=== PATIENT | male | born 1945 | race Caucasian/White ===

== ENCOUNTER 2018-02-19 11:22 | Observation (INO) | payer MEDICARE, BC ==
[2018-02-19] MEDS ORDERED: Ondansetron HCl/PF 4 MG/2 ML Vial ONE ×2 (11:37→12:55)
[2018-02-19] MEDS ORDERED: Succinylcholine Chloride 20 MG/ML 10 ml SYRINGE FS ONE (11:37)
[2018-02-19] MEDS ORDERED: ePHEDrine/0.9% NaCl/PF SYRINGE 50 mg/10 ml ONE (11:37)
[2018-02-19] MEDS ORDERED: PROPOFOL 200 MG/20 ML VIAL ONE (11:37)
[2018-02-19] MEDS ORDERED: Glycopyrrolate 0.2 MG/ML 5 ML SYRINGE ONE (11:37)
[2018-02-19] MEDS ORDERED: Lidocaine 1% PF 5 ML VIAL ONE (11:37)
[2018-02-19 12:14] LABS: #Lymphocytes 1.2 thou/uL (1.20-3.40); #Monocytes 0.7 thou/uL (0.11-0.59); #Neutrophils 11.6 thou/uL (1.40-6.50); %Basophils 0.3 % (0.0-1.0); %Eosinophils 0.2 % (0.0-10.0); %Lymphocytes 8.8 % (21.0-51.0); %Monocytes 5.4 % (0.0-10.0); %Neutrophils 85.3 % (42.0-75.0); Hemoglobin 13.1 g/dL (14.0-18.0); Mean Corpuscular HGB CONC 33.7 g/dL (32.0-36.0); Mean Corpuscular Hemoglobin 30.8 pg (27.0-31.0); Mean Corpuscular Volume 91.4 fL (78.0-98.0); Platelet Count 237 thou/uL (130-400); RBC Distribution Width 11.5 % (11.5-14.5); Red Blood Cell (RBC) Count 4.26 mill/uL (4.70-6.10); White Blood Cell (WBC) Count 13.6 thou/uL (4.8-10.8)
[2018-02-19 12:49] LABS: ALT (SGPT) 13 U/L (8-55); AST (SGOT) 16 U/L (5-34); Albumin 4.3 g/dL (3.4-4.8); Alkaline Phosphatase 59 U/L (40-150); Anion Gap 14 mmol/L (10-20); BUN (Urea Nitrogen) 11 mg/dL (8.4-25.7); Bilirubin, Total 1.6 mg/dL (0.2-1.2); Calc. Creatinine Clearance 0 mL/min (70-130); Calcium 10.4 mg/dL (7.8-10.44); Carbon Dioxide 27 mmol/L (23-31); Chloride 92 mmol/L (98-107); Estimated GFR-MDRD 61; Globulin 3.3 g/dL (2.4-3.5); Glucose 151 mg/dL (83-110); Lipase 17 U/L (8-78); Protein, Total 7.6 g/dL (5.8-8.1); Sodium 129 mmol/L (136-145)
[2018-02-19] MEDS ORDERED: Morphine 4 MG/ML VIAL ONE (12:55)
[2018-02-19 14:19] LABS: Bilirubin Negative (Negative); Blood, Urine Negative (Negative); Clarity CLEAR (Clear); Glucose, Urine (Dipstick) Negative (Negative); Leukocyte Large (Negative); Nitrite Negative (Negative); Protein, Urine (Dipstick) Negative (Neg-Trace); Specific Gravity, Urine 1.006 (1.002-1.036); Urobilinogen 0.2 mg/dL (0.2-1.0)
[2018-02-19 14:21] LABS: Bacteria/HPF None Seen HPF (None Seen); Hyaline Casts/LPF 0-3 HYALINE CAST LPF (0-3 Hyaline); RBC/HPF 0-3 HPF (0-3); Squamous Epithelial 0-3 HPF (0-3)
[2018-02-19] MEDS ORDERED: Piperacillin/Tazobactam 3.375 GM VIAL ONE (14:41)
[2018-02-19] MEDS ORDERED: Iopamidol 370 76% 50 ML VIAL FS ONE (14:45)
[2018-02-19] MEDS ORDERED: ISOVUE-370 76%-LOCM 1 ML ONE (14:45)
--- NOTE | 2018-02-19 14:48 | CT ---
CT ABDOMEN AND PELVIS WITH ORAL AND IV CONTRAST: Date: 02/19/18 HISTORY: Right lower quadrant abdominal pain. FINDINGS: There are mild dependent changes in the lung bases. No free air or free fluid is seen in the abdomen or pelvis. No lymphadenopathy is noted. There are vascular calcifications without evidence of aneurys mal dilatation of the abdominal aorta. The prostate is enlarged. There is a 1.0 cm low density lesion in the left lobe of the liver, likely cyst. No calcified gallsto roe are seen. The spleen, pancreas, and adrenal glands are normal. Low density lesions in the kidneys are likely cysts. The small bowel loops are not abnormally dilated. A dilated, fluid-filled appendix is seen without pe riappendiceal inflammatory changes. There is contrast in the cecum, but not in the appendix. IMPRESSION: Findings are suggestive of appendicitis. Discussed over the phone with ER physician, Dr. Augusto Butterfield, at 1422 hours. CODE CR. POS: ARMIN
[2018-02-19] MEDS ORDERED: Bupivacaine/Epinephrine 0.25% 30 ML VIAL ONE (15:14)
--- NOTE | 2018-02-19 15:39 | HP ---
DATE OF ADMISSION: 02/19/2018 HISTORY OF PRESENT ILLNESS: Mr. Barbosa is a 72-year-old man who presented to [facility] with insidious onset periumbilical abdominal pain which started approximately 1300 hours yester day. The pain was described as a dull ache which intensified to sharp pain rated at 9/10, associated with two bouts of nausea, but no emesis. This patient reports some anorexia. He admits to some chills, but no fever. The patient presented to emergency department today because the pain has now settled in the right low er quadrant where it has persisted. PAST MEDICAL HISTORY: Pertinent for essential hypertension, hyperlipidemia, and type 2 diabetes vinayak itus. PAST SURGICAL HISTORY: Patient denies any significant past surgeries except for colonoscopies x2, la st of which was within the last 5 years. SOCIAL HISTORY: The patient is and lives at home with his . He is retired. He admits t o over 30 pack-year cigarette smoking, but has not smoked over the last 3-5 years. He admits to heather garcia 12 beers daily. Denies any other illicit drug abuse. FAMILY HISTORY: Noncontributory for this patient's age. PREHOSPITALIZATION MEDICATIONS: Includes vitamin D3 1000 units p.o. daily, meclizine 25 mg p.o. b.i. d., Centrum 1 p.o. daily, valsartan/hydrochlorothiazide 160/25 mg p.o. daily, metformin 2000 mg p.o. at bedtime with meals, glimepiride 4 mg p.o. daily, amlodipine 10 mg p.o. daily, atorvastatin 20 mg p .o. daily, aspirin 81 mg p.o. daily, fish oil 1000 mg p.o. daily. ALLERGIES: Patient denies any known drug allergies. REVIEW OF SYSTEMS: A 10-point review of systems essentially unremarkable except for as stated in pas t medical history and chief complaint. PHYSICAL EXAMINATION: GENERAL: This reveals a 72-year-old normally developed man who is otherwise coherent and interactive and appears stated age. The patient is alert and oriented x3, appears to be in no acute distress at the time of my evaluation. VITAL SIGNS: Includes blood pressure 139/78, pulse 81, respiratory rate is 17, temperature is 98.3 d egrees Fahrenheit, oxygen saturation 93% on room air. HEENT: Reveals normocephalic and atraumatic. Pupils are equal, round, reactive to light and accommo dation. Extraocular muscles are intact bilaterally. The patient has no sclerae icterus present. Or al mucosa pink and moist. No lesions are noted. NECK: Supple. No palpable lymphadenopathy or thyromegaly present. CARDIOVASCULAR: Heart reveals regular rate and rhythm, no murmurs or gallops auscultated. LUNGS: Clear to auscultation bilaterally. Breathing regular and unlabored. ABDOMEN: Soft with right lower quadrant tenderness at McBurney's. He has a positive Rovsing sign. Liver and spleen are nonpalpable below costal margins. EXTREMITIES: Reveals 2+ radial and pedal pulses bilaterally. No ankle edema is present. NEUROLOGIC: Reveals no focal deficits present. IMAGING: I have personally reviewed the CT scan of the abdomen and pelvis, which reveals dilated veronica endix with no significant periappendiceal fat stranding. PERTINENT LABORATORY DATA: Today includes a CBC with 13,600 white blood cells, hemoglobin and hemato crit 13.1 and 39.0 respectively. Platelet count is 237,000. Metabolic profile: Sodium 129, potassi um is 4.0, chloride is 92, bicarbonate is 27, BUN 11, creatinine is 1.17, glucose 151, total bilirubi n is 1.6. Serum lipase is normal at 17. IMPRESSION: Acute appendicitis. PLAN: Laparoscopic appendectomy. Above findings and plans were discussed with the patient. I have advised the patient of the risks and benefits of the proposed surgery to include, but not limited to bleeding, infection, injury to bowel and surrounding structures. The patient and his at bedside , both indicated understanding of the information provided. I answered their questions. The patient has granted consent for this admission and surgical intervention.
[2018-02-19] MEDS ORDERED: Fentanyl 100 MCG/2 ML VIAL ONE ×2 (15:50→17:19)
[2018-02-19] MEDS ORDERED: Ondansetron HCl/PF 4 MG/2 ML Vial IVP PRN ×2 (17:41)
[2018-02-19] MEDS ORDERED: Promethazine HCl 25 MG/ML VIAL IM PRN ×2 (17:41)
[2018-02-19] MEDS ORDERED: Promethazine HCl 25 MG/ML VIAL SLOW IVP PRN (17:41)
[2018-02-19] MEDS ORDERED: Dextrose 5% in Water 1,000 ML IV PRN (17:41)
[2018-02-19] MEDS ORDERED: Dextrose 50% Abboject 50 ML SYRINGE SLOW IVP PRN (17:41)
[2018-02-19] MEDS ORDERED: hydrALAZINE 20 MG/ML VIAL SLOW IVP PRN (17:41)
[2018-02-19] MEDS ORDERED: Sodium Chloride 0.9% 1,000 ML IV SCH (17:45)
[2018-02-19] MEDS ORDERED: Labetalol HCl 100 MG/20 ML VIAL ONE (17:48)
[2018-02-19 18:51] VITALS: BMI 26.0
[2018-02-19] MEDS: Famotidine 20 MG TAB PO SCH (20:57)
[2018-02-19] MEDS: Piperacillin/Tazobactam 3.375 GM in Sodium Chloride 0.9% 100 ML IVPB SCH (21:09)
--- NOTE | 2018-02-19 21:09 | OP ---
DATE OF OPERATION: 02/19/2018 PREOPERATIVE DIAGNOSES: Acute appendicitis. POSTOPERATIVE DIAGNOSIS: Acute appendicitis. PROCEDURES PERFORMED: Laparoscopic appendectomy. SURGEON: Vince Mina D.O. ANESTHESIA: General endotracheal. ESTIMATED BLOOD LOSS: 20 mL FLUIDS GIVEN: 1500 mL crystalloids. SPONGE AND INSTRUMENT COUNT: Certified as correct x2. COMPLICATIONS: None apparent at the time of operation. INDICATIONS FOR PROCEDURE: A 72-year-old man presented with abdominal pain. Clinical and radiographic examination was consistent with acute appendicitis for which patient was brought to the operating room for appendectomy. Findings are consistent with acute suppurative retrocecal appendix, no evidence of perforation. There was a small amount of seropurulent fluid in the pericecal gutter. This was evacuated with suction. DESCRIPTION OF PROCEDURE: Informed consent obtained from the patient, who was brought to the operati ng room and placed in supine position. Following general anesthesia, abdomen is sterilely prepped an d draped in usual fashion. The skin below the umbilicus was infiltrated with 0.25% Marcaine with epi nephrine. A small curvilinear infraumbilical incision is made using an 11 scalpel. Umbilical stalk grasped with Kimberly's and elevated. Veress needle inserted through the incision and placed in the pe ritoneal cavity through which the abdomen was insufflated with 3 liters of CO2 gas. Intraabdominal p ressure was noted at 2 mmHg. Following abdominal insufflation, Veress needle was removed and a 5 mm trocar introduced using the Visiport under laparoscopy. Laparoscopy confirmed with proper placement of the port, no injuries to underlying structures. Additional laparoscopy reveals the right lower qu adrant completely encased by omental adhesions. Under direct laparoscopy, a 5 mm suprapubic and a 12 mm left lower quadrant ports were placed after the overlying skin infiltrated with 0.25% Marcaine wi th epinephrine and appropriate incision was made. The patient was placed in a Trendelenburg position , rotated to his left. I introduced a Prestige grasper through the left lower quadrant ports using t his to bluntly take down omental adhesions. Terminal ileum was then traced up approximately 2 feet f rom the ileocecal junction, no Meckel's diverticulum noted. The cecum was adhered to the right later al gutter. Once the fibrinous attachments were taken down using EndoShears, a retrocecal appendix wa s noted, which was quite supportive. I introduced an Endo Essence forceps through the suprapubic por t site grasping the appendix which was elevated. I used a [place] dissector to create a rent throug h the mesoappendix. Through this Endo-GIANNI with a blue load was introduced dividing the appendix at a ppendicocecal junction. Using a white load of the Endo-GIANNI, the mesoappendix was divided at the base . A suppurative appendix is delivered of the abdominal cavity using an EndoCatch. Operative site ir rigated with saline. Finding no other pathology, laparoscopy was terminated. Fascia of the left low er quadrant port site was closed using 0 Vicryl suture and Endo closure device under laparoscopy. Th e abdomen was desufflated. All ports and instruments removed and accounted for. Skin incisions clos ed using 4-0 Monocryl suture in subcuticular fashion. Dermabond applied over the incision to closure . The patient tolerated the operation without any apparent complications and was returned to the rec overy room in satisfactory condition.
[2018-02-19] MEDS: Ketorolac Tromethamine 30 MG/ML VIAL IVP SCH (21:10)
[2018-02-19] MEDS: Famotidine/PF 20 mg/2ml Vial SLOW IVP SCH (21:11)
[2018-02-19] MEDS: Oxazepam 10 MG CAP PO SCH (21:11)
[2018-02-20] MEDS: Ketorolac Tromethamine 30 MG/ML VIAL IVP SCH ×5 (02:45→20:39)
[2018-02-20] MEDS: Piperacillin/Tazobactam 3.375 GM in Sodium Chloride 0.9% 100 ML IVPB SCH ×4 (02:48→20:41)
[2018-02-20] MEDS ORDERED: Non-Formulary Item 1 EACH (Valsartan/Hydrochlorothiazide [Diovan Hct] 1 TABLET) PO SCH (09:00)
[2018-02-20] MEDS: Neostigmine 0.5 MG in Syringe 0 ML SC SCH ×3 (09:23→20:40)
[2018-02-20] MEDS: Famotidine/PF 20 mg/2ml Vial SLOW IVP SCH ×2 (09:23→20:39)
[2018-02-20] MEDS: Oxazepam 10 MG CAP PO SCH ×3 (09:24→20:39)
[2018-02-20] MEDS: Atorvastatin Calcium 20 MG TAB PO SCH (09:24)
[2018-02-20] MEDS: Valsartan 80 MG TAB PO SCH (09:25)
[2018-02-20] MEDS: Folic Acid 1 MG TAB PO SCH (09:25)
[2018-02-20] MEDS: Amlodipine 10 MG TAB PO SCH (09:25)
[2018-02-20] MEDS: Famotidine 20 MG TAB PO SCH ×2 (10:36→20:38)
[2018-02-20] MEDS: HumaLOG 300 UNITS/3 ML VIAL SC PRN ×2 (13:37→16:15)
--- NOTE | 2018-02-20 15:58 | PRG ---
DATE OF SERVICE: 02/20/2018 SUBJECTIVE: Mr. Barbosa is a 72-year-old man who is postop day #1 status post laparoscopic appendectomy and drainage of periappendiceal abscess. The patient reports adequate pain control today. He ambul ates with minimum difficulty. He is tolerating clear liquid diet. He denies passing any flatus. OBJECTIVE: VITAL SIGNS: This morning includes blood pressure 152/80, pulse 72, respiratory rate is 20, temperat ure is 97.6 degrees Fahrenheit, oxygen saturation is 91% on 1 liter by nasal cannula oxygen. HEENT: Reveals normocephalic and atraumatic. Pupils are equal, round, and reactive to light and acc ommodation. Extraocular muscles are intact bilaterally. He has no sclerae icterus present. HEART: Reveals regular rate and rhythm, no murmurs or gallops auscultated. CHEST: Clear to auscultation bilaterally. Breathing is regular and unlabored. ABDOMEN: Soft and markedly distended. He has hyperactive bowel sounds. Incisions otherwise remain intact, clean, and dry. He has no peritoneal signs on examination. NEUROLOGIC: Reveals no focal deficits present. IMPRESSION: 1. Postoperative day #1 status post laparoscopic appendectomy and drainage of periappendiceal absces s. 2. Acute postoperative ileus. PLAN: 1. Continue to increase activity as tolerated. 2. We will maintain diet with clear liquids and advance as tolerated. 3. The patient will be discharged home once ileus resolves. The above findings and plan discussed w ith the patient and his at bedside. They indicate understanding of information given. I have a nswered their questions.
[2018-02-21] MEDS: Ketorolac Tromethamine 30 MG/ML VIAL IVP SCH ×2 (03:53→09:23)
[2018-02-21] MEDS: Neostigmine 0.5 MG in Syringe 0 ML SC SCH ×2 (03:54→09:25)
[2018-02-21] MEDS: Piperacillin/Tazobactam 3.375 GM in Sodium Chloride 0.9% 100 ML IVPB SCH ×2 (03:54→09:31)
[2018-02-21 05:18] VITALS: BP 169/81
[2018-02-21] MEDS ORDERED: Prevnar 13-Val Conj/PF 0.5 ML SYRINGE IM ONE (09:00)
[2018-02-21] MEDS: Folic Acid 1 MG TAB PO SCH (09:04)
[2018-02-21] MEDS: Valsartan 80 MG TAB PO SCH (09:04)
[2018-02-21] MEDS: Amlodipine 10 MG TAB PO SCH (09:04)
[2018-02-21] MEDS: Atorvastatin Calcium 20 MG TAB PO SCH (09:04)
[2018-02-21] MEDS: Famotidine 20 MG TAB PO SCH (09:05)
[2018-02-21] MEDS: Famotidine/PF 20 mg/2ml Vial SLOW IVP SCH (09:06)
[2018-02-21] MEDS: Oxazepam 10 MG CAP PO SCH (09:22)
[2018-02-21 11:26] VITALS: TEMP 98.3
--- NOTE | 2018-02-21 20:33 | DIS ---
DATE OF ADMISSION: 02/19/2018 DATE OF DISCHARGE: 02/21/2018 ADMITTING AND DISCHARGING PHYSICIAN: Vince Mina DO ADMITTING AND DISCHARGE DIAGNOSIS: Acute appendicitis with periappendiceal abscess. OPERATIONS PERFORMED: Laparoscopic appendectomy and drainage of periappendiceal abscess by Dr. Mina on 02/19/2018. Please see a separate dictation for the operative report. HISTORY AND HOSPITAL COURSE: A 72-year-old man admitted on 02/19/2018 following an uneventful laparo scopic appendectomy and drainage of periappendiceal abscess. The patient developed a postoperative a dynamic ileus, which resolved 48 hours later. Today, he is ambulating with minimum difficulty. He e ndorses flatus and bowel movements. He tolerated general diet. The pain is adequately controlled on oral analgesics. The patient has remained hemodynamically stable and afebrile. PHYSICAL EXAMINATION: VITAL SIGNS: Blood pressure this morning 143/74, pulse is 75, respiratory rate is 16, temperature 98 .2 degrees Fahrenheit, oxygen saturation is 92% on 2 liters by nasal cannula oxygen. HEART: Reveals regular rate and rhythm. No murmurs or gallops auscultated. LUNGS: Clear to auscultation bilaterally. Breathing regular and unlabored. ABDOMEN: Soft and obese. He has minimum abdominal tenderness to palpation. Incisions remain intact , clean and dry. The patient has maximized hospital benefit and will be discharged home today with the following instr uctions: 1. He follows up with me in the [facility] in 2 weeks. 2. He is to avoid weightlifting in excess of 20 pounds until he has been released by me. 3. He may shower and avoid soaking himself in a bathtub or swimming until he has been released by me . 4. He is to call me with any questions or problems including fever in excess of 101 degrees Fahrenhe it, exacerbation of abdominal pain, intolerance to oral intake or any abnormal drainage from the inci sional wounds. The patient has also been advised to resume all prehospitalization medication as prescribed by his [facility] physician. Additionally, he was given a prescription for tramadol 50 mg, number 40 with 1 refill, to be taken 1-2 p.o. q.6 hours p.r.n. pain. He may alternate this with Tylenol 1000 mg p.o. q.6 hours. He was given a prescription for Augmentin 875 mg number 10 to be taken 1 p.o. b.i.d. unt il all taken. Above instructions were given to the patient, who indicates understanding of the information given. I have answered his questions.
== END 2018-02-21 12:22 | disposition home or self-care (01) ==
LOC: ERS 11:22 → SDC/OP 15:17 → SURG A 18:40
PROVIDERS: ADMIT Surgery; ATTEND Surgery
PROC: 0DTJ4ZZ Resection of Appendix, Percutaneous Endoscopic Approach (ICD-10-PCS; principal; 2018-02-19)
DX: K35.3 Acute appendicitis with localized peritonitis (principal); I10 Essential (primary) hypertension; E78.5 Hyperlipidemia, unspecified; E11.9 Type 2 diabetes mellitus without complications; K56.7 Ileus, unspecified; Z87.891 Personal history of nicotine dependence; Z79.82 Long term (current) use of aspirin; Z79.84 Long term (current) use of oral hypoglycemic drugs; Z79.899 Other long term (current) drug therapy; Z98.890 Other specified postprocedural states
CPT/HCPCS: 44970; 74177; 80053; 82962 ×3; 83690; 85025; 88304; 93005; 96361 ×3; 96365; 96366 ×3; 96372 ×2; 96374; 96375 ×2; 96376 ×2; 99285; G0378; G0463; 36415; 36416; 81003; 81015; 99213; J1885; J2001; J2270; J2405; J2543; J2704; J2710; J3010; J7050; S0028

== ENCOUNTER 2019-12-22 06:56 | Outpatient (CLI) | payer MEDICARE, BC ==
--- NOTE | 2019-12-22 07:44 | ULT ---
Renal sonogram HISTORY: Renal insufficiency. FINDINGS: Right kidney measures up to 11.1 cm. No hydronephrosis. A 2.1 cm cyst projects from the inf erior pole. Left kidney is 11.2 cm. No hydronephrosis. A 1.3 cm cyst is present at the inferior pole. Urinary bladder has a normal appearance. IMPRESSION : No evidence of urinary tract obstruction. Small bilateral renal cysts.
== END 2019-12-22 06:57 | disposition home or self-care (01) ==
LOC: BICULT 06:56
PROVIDERS: ATTEND Internal Medicine Nephrology
DX: N18.3 Chronic kidney disease, stage 3 (moderate) (principal); N28.1 Cyst of kidney, acquired
CPT/HCPCS: 76770

== ENCOUNTER 2020-06-25 08:37 | Outpatient (CLI) | payer MEDICARE, BC ==
--- NOTE | 2020-06-25 09:37 | ULT ---
BILATERAL CAROTID DUPLEX ULTRASOUND: HISTORY: Dizziness TECHNIQUE: Grayscale, color-flow and spectral Doppler ultrasound imaging of the extracranial carotid artery syst ems was performed bilaterally. FINDINGS: There is mild plaque formation in the carotid bifurcations. The peak systolic velocity in the right ICA measures 84 cm/s with an end-diastolic velocity of 7 cm/s and a systolic ratio of 0.9. The peak systolic velocity in the left ICA measures 91 cm/s with an end-diastolic velocity of 12 cm/s and a systolic ratio of 0.84. Flow in both vertebral arteries remains antegrade. IMPRESSION: No evidence of hemodynamically significant stenosis in either ICA.
== END 2020-06-25 08:38 | disposition home or self-care (01) ==
LOC: ULT 08:37
PROVIDERS: ATTEND Nurse Practitioner Family
DX: I65.23 Occlusion and stenosis of bilateral carotid arteries (principal)
CPT/HCPCS: 93880

== ENCOUNTER 2020-07-26 13:16 | Inpatient (IN) | payer MEDICARE, OTHER ==
[~2020-07-26 13:16] MED LIST: Heparin 10,000 UNITS/ 10 ML VIAL ONE
[2020-07-26 14:08] LABS: #Lymphocytes 0.7 thou/uL (1.20-3.40); %Basophils 0.1 % (0.0-1.0); %Eosinophils 0.1 % (0.0-10.0); %Lymphocytes 5.4 % (21.0-51.0); %Monocytes 7.2 % (0.0-10.0); %Neutrophils 87.3 % (42.0-75.0); Hemoglobin 9.6 g/dL (14.0-18.0); Mean Corpuscular HGB CONC 34.6 g/dL (32.0-36.0); Mean Corpuscular Hemoglobin 32.3 pg (27.0-31.0); Mean Corpuscular Volume 93.4 fL (78.0-98.0); Mean Platelet Volume 6.7 fL (7.4-10.4); Platelet Count 335 thou/uL (130-400); RBC Distribution Width 10.9 % (11.5-14.5); Red Blood Cell (RBC) Count 2.97 mill/uL (4.70-6.10); White Blood Cell (WBC) Count 13.8 thou/uL (4.8-10.8)
[2020-07-26] MEDS ORDERED: Calcium Gluc 4.6 MEQ/10 ML (100 MG/ML) ONE ×2 (14:11→18:16)
[2020-07-26] MEDS ORDERED: DOPamine 400 MG/D5W 250 ML 250 ML ONE (14:12)
--- NOTE | 2020-07-26 14:30 | RAD ---
Exam: Chest one view HISTORY:Dyspnea Comparison: 01/02/2013 FINDINGS: Cardiac silhouette:Cardiomegaly. Aorta: Atherosclerosis Pulmonary vessels: Normal Costophrenic angles: Clear LUNGS: Bibasilar interstitial opacities, along with a right perihilar interstitial infiltrate. Pneumothorax: None Osseous abnormalities: None IMPRESSION: 1. Atherosclerosis 2. Bibasilar infiltrates along with a right upper lobe infiltrate. Multi lobar pneumonia is suspected . Continued surveillance is recommended.
[2020-07-26 14:31] LABS: ALT (SGPT) 16 U/L (8-55); AST (SGOT) 21 U/L (5-34); Alkaline Phosphatase 44 U/L (40-110); Anion Gap 21 mmol/L (10-20); BUN (Urea Nitrogen) 74 mg/dL (8.4-25.7); Bilirubin, Total 0.4 mg/dL (0.2-1.2); Calc. Creatinine Clearance 0 mL/min (70-130); Calcium 8.5 mg/dL (7.8-10.44); Carbon Dioxide 18 mmol/L (23-31); Chloride 81 mmol/L (98-107); Glucose 167 mg/dL (83-110); Magnesium 2.1 mg/dL (1.6-2.6); Potassium 5.9 mmol/L (3.5-5.1)
[2020-07-26 14:34] LABS: Sodium 114 mmol/L (136-145)
[2020-07-26 15:07] LABS: SARS-CoV-2 NAA Rapid Test Not Detected (NotDetected)
[2020-07-26] MEDS ORDERED: Azithromycin 500 MG VIAL ONE (15:14)
[2020-07-26] MEDS ORDERED: cefTRIAXone\\ROCEPHIN 2 GM VIAL ONE (15:14)
[2020-07-26 15:46] LABS: Base Excess-Venous -7.1 mmol/L (-2.0 to 3.0); Bicarbonate (HCO3v) 19.3 mmol/L (22.0-28.0); CO2 Tension (PvCO2) 42.1 mmHg (40.0-50.0); Calcium, Ionized 1.16 mmol/L (1.15-1.33); Chloride 81 mmol/L (98-107); Hemoglobin - Calc 8.4 g/dL (14.0-18.0); Potassium 6.2 mmol/L (3.5-5.1); Sodium 109 mmol/L (138-145); T. Carbon Dioxide 20.6 mmol/L (22.0-28.0); vO2 Saturation-calc 97.9 % (60.0-85.0)
[2020-07-26] MEDS ORDERED: Fentanyl 100 MCG/2 ML VIAL ONE ×2 (15:56→17:32)
--- NOTE | 2020-07-26 16:03 | RAD ---
Chest one view HISTORY: Central line placement. COMPARISON: 07/26/2020 earlier exam on the same date. FINDINGS: Cardiac silhouette is magnified by projection. Pulmonary vasculature upper limits of normal . Mediastinum is midline with aortic calcification. Infiltrate at the right base is more dense than on the prior study. Infiltrate at the superior segmen t right lower lobe unchanged. No evidence of pneumothorax. Defibrillator patches overlie the chest. Thin radiopaque tubing overlies the right supraclavicular level. Knot at the expected location of a c entral venous catheter. IMPRESSION : Central venous catheter not visualized on this exam. No evidence of pneumothorax. Slight worsening of right basilar infiltrate.
[2020-07-26] MEDS ORDERED: methylPREDNISolone Sod Succ/PF 125 MG/2 ML VIAL ONE (16:37)
[2020-07-26] MEDS ORDERED: Sodium Bicarb 50 MEQ/50 ML VIAL ONE (16:37)
[2020-07-26] MEDS ORDERED: Dextrose 50% Abboject 50 ML SYRINGE SLOW IVP PRN (16:43)
[2020-07-26] MEDS ORDERED: Dextrose 5% in Water 1,000 ML IV PRN (16:43)
--- NOTE | 2020-07-26 16:53 | CON ---
DATE OF CONSULTATION: 07/26/2020 REASON FOR CONSULTATION: Bradycardia. HISTORY OF PRESENT ILLNESS: Mr. Barbosa is a very pleasant 75-year-old white gentleman, who comes to the hospital for just not feeling well. He states for the last 2 months he has been slowly feeling worse with pain all over his body, tingling of the upper extremities. Today, he was so bad that he decided to come in for evaluation. Initially, he had an EKG that showed atrial fibrillation with a heart rate in the mid to low 40s, so Cardiology was consulted emergently. On my evaluation, Mr. Barbosa denies any syncope or presyncope. He has only been feeling tired and weak for the last few months, getting worse every day. Workup was still pending on my evaluation, however, now at the time of this dictation, he has already had a chest x-ray that suggest multilobar pneumonia as well as several electrolyte derangements including hyponatremia and hyperkalemia. He also has acute renal injury. Mr. Barboas denies any chest pain, tightness, or pressure. His breathing is minimally changed from his baseline, but he does have a lot of cough. PAST MEDICAL HISTORY: 1. Diabetes. 2. Hyperlipidemia. 3. Hypertension. SURGICAL HISTORY: Sinus surgery. SOCIAL HISTORY: Former smoker, quit over 10 years ago. Drinks every day about 6 drinks, 10 beers per day. No drug use. ALLERGIES: NO KNOWN DRUG ALLERGIES. OUTPATIENT MEDICATIONS: 1. Amlodipine 5 mg a day. 2. Lisinopril 20 mg a day. 3. Pantoprazole 40 mg a day. 4. Atorvastatin 10 mg q.h.s. 5. Metformin 1000 mg b.i.d. 6. Acetaminophen p.r.n. 7. Prednisone 10 mg a day. PHYSICAL EXAMINATION: VITAL SIGNS: Temperature on arrival he was 94.8 rectally, blood pressure was 115/44, pulse of 47 anywhere from 42 to 61. He was saturating 98% on 4 L nasal cannula. GENERAL: Awake, alert, oriented x3. No distress. HEENT: Normocephalic, atraumatic. NECK: Supple. LUNGS: Clear to auscultation anteriorly. ABDOMEN: Soft. Positive bowel sounds. CARDIOVASCULAR: S1, S2. Irregularly regular and bradycardic in the 40s. EXTREMITIES: 2+ edema. SKIN: Warm and dry. LABORATORY DATA: Laboratory work has been reviewed. CBC with a white count of 13, hemoglobin of 9.8, hematocrit of 27, platelet count of 335. ABG was reviewed, pH was 7.27. This is of VBG. CO2 was 42. Chemistry with a sodium of 114, potassium was 5.9, anion gap was 21, BUN 74, creatinine 4.43, GFR of 13, glucose of 167. Troponin was negative. BNP was 506. Magnesium was 2.1. LFTs were normal. Albumin of 4. COVID-19 PCR was not detected and influenza A and B are both negative. DIAGNOSTIC STUDIES: EKG was reviewed. Chest x-rays were reviewed. ASSESSMENT AND PLAN: 1. Bradycardia. 2. Hyponatremia. 3. Hyperkalemia. 4. Abnormal liver function tests. 5. Acute kidney injury, new onset. 6. Multilobar pneumonia, possibly. 7. Hypothermia, improved on a Stevie Hugger. 8. Atrial fibrillation, unknown duration. PLAN: 1. Most likely his bradycardia is related to his metabolic derangement including hyponatremia and hyperkalemia, which are probably related to either his pneumonia and his kidney injury. These will need to be corrected before deciding if he will be a candidate for any type of pacing. At this time, he is stable where he does not require a temporary pacer and I would just do dopamine as needed if his heart rate would drop or his blood pressure drops a more. If we suspect septic shock, a better medication would be Levophed at that point for blood pressure more than dopamine. 2. Echocardiogram will be done. 3. Agree with ICU admission. 4. Antibiotics per primary team. Thank you for letting us to participate in the care of your patient. We will follow. 45 minutes of critical care time. Job ID: [id number]
[2020-07-26 17:32] LABS: ALT (SGPT) 13 U/L (8-55); AST (SGOT) 17 U/L (5-34); Albumin 3.5 g/dL (3.4-4.8); Alkaline Phosphatase 38 U/L (40-110); Anion Gap 17 mmol/L (10-20); BUN (Urea Nitrogen) 73 mg/dL (8.4-25.7); Bilirubin, Total 0.3 mg/dL (0.2-1.2); Calc. Creatinine Clearance 0 mL/min (70-130); Calcium 8.7 mg/dL (7.8-10.44); Carbon Dioxide 23 mmol/L (23-31); Chloride 82 mmol/L (98-107); Globulin 2.6 g/dL (2.4-3.5); Glucose 181 mg/dL (83-110); Potassium 6.4 mmol/L (3.5-5.1); Protein, Total 6.1 g/dL (5.8-8.1)
[2020-07-26 17:37] LABS: Sodium 116 mmol/L (136-145)
[2020-07-26] MEDS ORDERED: Fentanyl 100 MCG/2 ML VIAL SLOW IVP SCH (18:00)
--- NOTE | 2020-07-26 18:19 | CON ---
DATE OF CONSULTATION: REASON FOR CONSULTATION: Hyperkalemia. HISTORY OF PRESENT ILLNESS: This is a 75-year-old gentleman presented to the hospital with weakness and numbness and bradycardia. The patient was noted to have a sodium of 114. I was consulted. The patient is on an ADRIANA inhibitor as well as metformin at home. The patient had not been feeling well. The patient was also noted to have bradycardia. PAST MEDICAL HISTORY: Diabetes mellitus, hypertension, history of alcohol abuse, history of sinus surgery. SOCIAL HISTORY: No alcohol or drug use. FAMILY HISTORY: Negative for ESRD. ALLERGIES: REVIEWED. HOME MEDICATIONS: List reviewed. HOSPITAL MEDICATIONS: List reviewed. REVIEW OF SYSTEMS: 15-point review of systems was performed, was negative except for positives noted above. HEENT: Eyes intact, no diplopia. Ears: No hearing loss or earache. Nose: No discharge or bleeding. CHEST: No cough or phlegm. ABDOMEN: No nausea or vomiting. GENITOURINARY: No hematuria. No Marrufo catheter. MUSCULOSKELETAL: No low back pain. No joint swelling or pain. NEUROLOGICAL: No syncope. No seizures. SKIN: No complaints of rash or itching. PSYCHIATRIC: No depression. CONSTITUTIONAL: No weight loss or loss of appetite. PHYSICAL EXAMINATION: GENERAL: The patient is awake and alert. vital signs: Afebrile, pulse 70, breathing at 16, blood pressure 90/50. HEENT: Head normocephalic and atraumatic. Eyes intact, no ulcers. Nose intact, no ulcers. Ears intact, no ulcers. NECK: Supple. No JVD. CHEST: Symmetrical and clear. CARDIOVASCULAR: Shows S1 and S2, no rub, no murmur. GASTROINTESTINAL: Abdomen is soft, bowel sounds positive. EXTREMITIES: Have 3+ edema. SKIN: Shows no rash or petechiae. MUSCULOSKELETAL: Shows no joint swelling or stiffness. GENITOURINARY: Shows no Marrufo or CVA tenderness. NEUROLOGIC: Motor intact. Cranial nerves intact. LABORATORY DATA: Reviewed. ASSESSMENT AND PLAN: 1. Acute hyponatremia with a serum osmolality of 266, most likely hyponatremia because of renal failure, so we will gently dialyze the patient's sodium to 125. 2. Hyperkalemia. Plan Emergent dialysis. 3. Congestive heart failure. 4. Bradycardia. Risks versus benefits of dialysis were discussed and dialysis will be planned. Job ID: [id number] [facility]
--- NOTE | 2020-07-26 19:06 | CON ---
DATE OF CONSULTATION: 07/26/2020 HISTORY OF PRESENT ILLNESS: Mr. Barbosa is a 75-year-old male with history of renal insufficiency. His main complaints have been surrounding his neck, his arms, and his legs. His ex-girlfriend who still has to take care of him is in the room and provided most of the history. She says his p.o. intake has been poor lately because of his pain and his arm discomfort. He had an MRI done through his chiropractor, who referred him to a pain doctor, but he has not made that appointment yet. He has never seen a neurosurgeon. I tried to find the MRI of his neck, but I cannot access this. Apparently, it was not at the [facility]. He was seen a few days ago at [facility] for severe pain in his neck and his arms and was told to keep his appointment with his pain doctor, but also see a surgeon. His pain became unbearable today, so an ambulance was called and brought him to the hospital. An incidental finding was bradycardia with atrial fibrillation. His current heart rates are in the 60s, but he is on a low dose of dopamine. He denies having any chest pain. He has never had any history of heart issues he says. PAST MEDICAL HISTORY: Remarkable for; 1. Two colonoscopies. 2. He has a history of diabetes. 3. He has a history of hypertension. 4. He has lipid disorder. 5. He has peripheral neuropathy. 6. In 2013, he had an abdomen and pelvis CT that showed findings suspicious for cavernous transformation of the portal vein, suggesting possible chronic portal vein occlusion. No portal hypertension was noted. 7. It did not look like Gastroenterology saw him during that hospitalization. FAMILY HISTORY: Negative for lung disease in early age. He had significant other in the room given history, but she said that they are not "together anymore." He has never been a smoker. He has never been diagnosed with asthma. PHYSICAL EXAMINATION: VITAL SIGNS: His heart rate was in the 60s, blood pressure is in the 130s, respiratory rate was in the teens. HEAD AND NECK: He appears older than his age. He has some mild temporal muscle wasting. Head and neck exam was otherwise unremarkable. Sclerae are anicteric. LUNGS: Remarkable for bilateral wheezes. HEART: Regular rhythm. ABDOMEN: Soft and nontender. EXTREMITIES: Without clubbing, cyanosis, or edema. LABORATORY DATA: White count 13.8, hemoglobin 9.6, MCV was 93, and platelets 335. Sodium was 114; potassium 5.9, repeat was 6.2; chloride 81; bicarb 18; BUN 74; creatinine 4.43. PH 7.27, CO2 of 42, PO2 of 116. He is receiving bicarb, calcium gluconate, Kayexalate. He will receive some IV fluid at 125 mL an hour for now since he has not been taking in much by mouth in the last few days. We really need to get a copy of the MRI of his neck as this is the primary presenting complaint. It is unclear to me whether or not he has something that may require semi-urgent decompression such as severe cervical spinal stenosis or severe disk herniation impinging on his cord. With regard to his bradycardia, this is an incidental finding. The low dose of dopamine has corrected this. He can go to a telemetry bed in my opinion with fixed dose dopamine and does not require critical care. His hyponatremia obviously needs to be worked up. Hypothyroidism and adrenal crisis need to be ruled out. His bronchospasm may be fluid mediated. He does have a little mild pulmonary edema. I do not really think he has a pneumonia. I think once his heart rate is consistently up, we will see improvement of his chest radiograph. This is a 70-minute consult, 50% of the time was spent on the unit coordinating care. Job ID: [id number] [facility]
[2020-07-26 19:37] LABS: HBSAB Concentration Less than 8.00 mIU/mL; Hep B Core Total Ab Non-Reactive (NonReactive); Hep B Core Total Index 0.07 S/CO (0-0.79); Hep B Surf AB Non-Reactive (NonReactive); Hep B Surf Ag Non-Reactive S/CO (NonReactive); Hep C IgG Ab Non-Reactive (NonReactive); Hep C Index 0.06 S/CO (0-0.79)
--- NOTE | 2020-07-26 21:54 | HP ---
CHIEF COMPLAINT: Pain in his upper extremities. HISTORY OF PRESENT ILLNESS: The patient is a 75-year-old male with a history of diabetes and hypertension, who presented to the hospital initially with complaints of bilateral extremity pain. While talking to the patient's , the patient's stated that he has been having tingling in his upper extremities going on for quite some time six months to almost a year. Recently he has been having significant amount of pain in both of his hands. They went to urgent care on Thursday and at that time, the patient was asked to follow up with orthopedic spine doctor for further evaluation. At this time, the patient's stated that she went to [facility], does not recall the name of the physician, however, had a MRI done, which indicated some sort of narrowing and that patient will require injections in his spine. The patient's stated that the only reason she called EMS today is because he was unable to get out of bed today and normally he is able to ambulate and has been feeling very weak today and also because the pain in his upper extremities was significant to the point that nothing was helping him. The patient's also notes that he has been complaining of being tired and has been having some generalized weakness. He denies any fevers. He states that he does have a nonproductive cough normally; however, for the past few days has been having a cough with some sputum production. Denies any diarrhea, any sick contact exposures. However, has been just feeling weak all over. Denies any palpitations either. The patient's stated that he fell a couple of days ago. He did not pass out. He had a mechanical fall. He tripped on something on the floor and fell. PAST MEDICAL HISTORY: Type 2 diabetes, hypertension, hyperlipidemia. PAST SURGICAL HISTORY: He has had colonoscopies and sinus surgery. SOCIAL HISTORY: Former smoker, quit over 10 years ago. Drinks every day about 6 drinks and no drug use. He is a full code. Lives with his . ALLERGIES: HE HAS NO KNOWN DRUG ALLERGIES. HOME MEDICATIONS: He is on 1. Amlodipine 20 mg daily. 2. Pantoprazole 40 mg daily. 3. Atorvastatin 20 mg daily. 4. Metformin 1000 mg twice a day. 5. Acetaminophen with codeine and prednisone, which was recently prescribed to him by the spine doctor. REVIEW OF SYSTEMS: All negative except for the ones mentioned above in the HPI. PHYSICAL EXAMINATION: VITAL SIGNS: Temperature of 97.1. 17, 109/49, 60. Oxygen saturation is 98% on 4-6 L. GENERAL: He is awake, alert, and oriented x3. Does not appear in any distress. CV: Sinus le, irregular. LUNGS: He has some mild rhonchi and wheezing noted all over. ABDOMEN: Soft. Bowel sounds are present x2. EXTREMITIES: He has 1 to 2+ lower extremity pitting edema. NEUROVASCULAR: No focal deficits noted. He has sensation to bilateral upper extremity and bilateral lower extremity intact. SKIN: He does have some minor cuts and bruises noted to bilateral upper and lower extremity. LABORATORY RESULTS: As of the following. Has WBC of 13.8, hemoglobin of 9.6, hematocrit of 27.8, platelets of 355. Chemistry: Sodium of 114, creatinine of 4.4, which is elevated from his baseline, BUN of 74, potassium of 5.9. His bicarb is 18. His pH was 7.2. His BNP was 506. His COVID test was negative. The patient underwent just an x-ray which indicated some worsening right-sided bibasilar infiltrate. ASSESSMENT AND PLAN: The patient is a 75-year-old male, who presents to the hospital with complaints of upper extremity pain and was found to have multiple symptoms. 1. Symptomatic bradycardia. The patient's heart rate was noted to be 30s to 40s. He was initially given some calcium gluconate and Cardiology was consulted. He currently has pacer pads on. He was started on a dopamine drip. He will be going to the intensive care unit. His underlying rhythm is atrial fibrillation. He does not have any history of atrial fibrillation. I will start him on aspirin for now and go from there. 2. Acute hypoxic respiratory failure. His saturations are significantly low on 4-5 L. I will start him on some breathing treatment. I also gave him some low-dose steroids. He did get some steroids in the emergency room . He is a former smoker, however, currently does not smoke. Has been having a productive cough. Upon reviewing his x-ray, there was a concern for some right upper lobe infiltrate and/or multilobar pneumonia. I will start him on community-acquired antibiotics, may be just broaden it a little bit. Actually I will start him on some Zosyn for now and then taper it down. The patient appears very ill. 3. Acute kidney injury. Nephrology has been consulted. We will see if we can put in a Marrufo catheter to monitor accurate intake and output. Ultrasound has been ordered. 4. Hyponatremia. This could be most likely secondary to the patient not eating and drinking. He states that he has not been eating and drinking for the past couple of days or it could be multifactorial. The patient has been bradycardic and I do not know this is new or this has been going on. He has been feeling kind of weak for the past 2 weeks. We will start him on some gentle hydration and continue to monitor him. His blood pressure is labile. We will watch for that. 5. Deep venous thrombosis prophylaxis. I will put the patient on subcutaneous heparin and go from there. This plan was discussed with the patient's who is at the bedside and the patient. Code status discussed, full code Job ID: [id number]
[2020-07-26] MEDS ORDERED: HumaLOG 300 UNITS/3 ML VIAL ONE (22:24)
[2020-07-26] MEDS: HumaLOG 300 UNITS/3 ML VIAL SC PRN (22:28)
--- NOTE | 2020-07-26 22:30 | ULT ---
Renal ultrasound: 07/26/2020 COMPARISON: None HISTORY: Acute kidney insufficiency TECHNIQUE: Multiplanar grayscale sonographic imaging of the kidneys and urinary bladder obtained. FINDINGS: The right kidney measures 10.6 x 5.4 x 4.7 cm. There is a cyst emanating from the lower liz e of the right kidney measuring 2.3 x 1.9 cm. No right-sided hydronephrosis. Urinary bladder appears grossly unremarkable. Bilateral ureteral jets are noted. The left kidney measures 10.3 x 5.5 x 4.7 cm and demonstrates no stone or hydronephrosis. IMPRESSION: No hydronephrosis on either side.
[2020-07-26] MEDS: Atorvastatin Calcium 20 MG TAB PO SCH (23:51)
[2020-07-26] MEDS: DOPamine 400 MG/D5W 250 ML 250 ML IVPB SCH (23:55)
[2020-07-26] MEDS ORDERED: Piperacillin/Tazobactam 3.375 GM VIAL ONE (23:59)
[2020-07-27] MEDS: Piperacillin/Tazobactam 3.375 GM in Sodium Chloride 0.9% 100 ML IVPB SCH ×2 (00:14→06:16)
--- NOTE | 2020-07-27 00:44 | CON ---
DATE OF CONSULTATION: HISTORY OF PRESENT ILLNESS: A 75-year-old male patient presents to the emergency room with arm pain, paresthesias hands, having seen Dr. Haq after MRI cervical spine a few days ago revealed cervical spine disease and was scheduled for injections. Patient had continued dyspnea, malaise, presented to the emergency room, found to have a hemoglobin of 9.6, white count 13.8. Sodium 116, potassium 6.2, BUN 73, creatinine 4.54, GFR 13, glucose 266, CO2 18. Had a chest x-ray demonstrating congestive heart failure, pneumonitis and a COVID scan negative. Patient has bilateral antecubital IVs, left femoral vein triple-lumen catheter. Dr. Tolbert has seen him, asked me to see him regarding placement of hemodialysis catheter, initiate urgent dialysis tonight due to fluid overload, hyperkalemia, and acidosis. Dr. Crowder, Cardiology has seen him for bradycardia, multilobar pneumonia, felt his bradycardia is related to his metabolic derangements. Echocardiogram has been ordered. Dr. Johnson Montez has seen him in consultation for critical care management. PAST MEDICAL HISTORY: Patient had colonoscopies in the past, was due for another one soon. Past history of diabetes mellitus, insulin dependent, hypertension, lipid disorder, peripheral neuropathy, cervical spine disease status post MRI at [facility] recently 2012. CAT scan suggested findings suspicious for cavernous transformation of the portal vein suggesting chronic portal vein occlusion. No portal hypertension noted. Gastroenterology apparently at that hospitalization. Last colonoscopy 5 years ago. 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 REVIEW OF SYSTEMS: Otherwise noncontributory. No past history of cardiac problems. PHYSICAL EXAMINATION: VITAL SIGNS: Blood pressure 115/44, heart rate 60 to 47, 94.8 degrees, 87 kg. LUNGS: Rhonchi base. No wheezing. HEAD, EARS EYES, NOSE, AND THROAT: Slightly labored respirations, slightly dyspneic lungs. CARDIAC: Regular rate and rhythm. Bradycardia. ABDOMEN: Soft. EXTREMITIES: Edematous anasarca throughout all extremities. Palpable radial pulses. Bilateral IVs removed, left femoral vein, triple-lumen catheter. ASSESSMENT/PLAN: 1. Chronic renal failure, probably related to diabetes and hypertension. Plan urgent placement of femoral vein Trialysis catheter to initiate dialysis tonight for hyperkalemia and fluid overload and dyspnea. He will need permanent dialysis access next week. We will plan placement of hemodialysis catheter and probably a left arm primary fistula. Obtain ultrasound vein mapping both arms and planning for that. Avoid IV access, both arms. 2. COVID negative. 3. Bradycardia per Cardiology. 4. Cervical myelopathy. PLAN: MRI scan at [facility]. Patient, as I am seeing him, complains of continuous pain in his hands, left greater than right. He is waving them stating that it is so bad, he would like to have them removed. Obtain MRI scan cervical spine from [facility]. Job ID: [id number]
[2020-07-27 02:17] LABS: #Lymphocytes 0.3 thou/uL (1.20-3.40); #Monocytes 0.2 thou/uL (0.11-0.59); #Neutrophils 6.5 thou/uL (1.40-6.50); %Eosinophils 0.1 % (0.0-10.0); %Lymphocytes 4.7 % (21.0-51.0); %Monocytes 2.4 % (0.0-10.0); %Neutrophils 92.8 % (42.0-75.0); Hemoglobin 8.3 g/dL (14.0-18.0); Mean Corpuscular HGB CONC 34.8 g/dL (32.0-36.0); Mean Corpuscular Hemoglobin 32.3 pg (27.0-31.0); Mean Corpuscular Volume 92.7 fL (78.0-98.0); Mean Platelet Volume 6.4 fL (7.4-10.4); Platelet Count 288 thou/uL (130-400); RBC Distribution Width 10.9 % (11.5-14.5); Red Blood Cell (RBC) Count 2.57 mill/uL (4.70-6.10)
[2020-07-27 02:50] LABS: ALT (SGPT) 14 U/L (8-55); AST (SGOT) 15 U/L (5-34); Albumin 3.3 g/dL (3.4-4.8); Alkaline Phosphatase 38 U/L (40-110); Anion Gap 18 mmol/L (10-20); BUN (Urea Nitrogen) 50 mg/dL (8.4-25.7); Bilirubin, Total 0.3 mg/dL (0.2-1.2); Calc. Creatinine Clearance 0 mL/min (70-130); Carbon Dioxide 23 mmol/L (23-31); Chloride 87 mmol/L (98-107); Globulin 2.5 g/dL (2.4-3.5); Glucose 267 mg/dL (83-110); Potassium 4.9 mmol/L (3.5-5.1); Protein, Total 5.8 g/dL (5.8-8.1); Sodium 123 mmol/L (136-145)
[2020-07-27] MEDS ORDERED: DOPamine 400 MG/D5W 250 ML 250 ML ONE (03:33)
[2020-07-27] MEDS: DOPamine 400 MG/D5W 250 ML 250 ML IVPB SCH (03:34)
[2020-07-27 04:13] VITALS: BMI 27.0
[2020-07-27] MEDS: HumaLOG 300 UNITS/3 ML VIAL SC PRN ×3 (04:22→21:14)
--- NOTE | 2020-07-27 08:39 | OP ---
DATE OF PROCEDURE: 07/26/2020 PREOPERATIVE DIAGNOSIS: Cervical myelopathy, paresthesias, hands, diabetes, hypertension, chronic kidney disease, now hyperkalemic, in need of urgent dialysis access. Note, renal function was normal in February 2018 and BUN was normal in January 2020. PROCEDURE PERFORMED: Right femoral vein Trialysis catheter. ANESTHESIA: 1% Xylocaine. DESCRIPTION OF PROCEDURE: At the patient's bedside in the emergency room, right groin was prepared with ChloraPrep and draped in routine fashion. 1% Xylocaine was infiltrated in the skin and subcutaneous tissue. Seldinger technique used to place a Trialysis catheter secured with 3-0 nylon suture. Each port aspirated blood, flushed with heparinized saline solution. Sterile dressing applied. J-wire had been removed. The patient tolerated the procedure well. Job ID: [id number]
[2020-07-27] MEDS ORDERED: methylPREDNISolone Sod Succ 40 MG VIAL IVP SCH (09:00)
[2020-07-27] MEDS ORDERED: ZOSYN IVPB PRN (10:09)
--- NOTE | 2020-07-27 10:45 | ULT ---
Exam: Vein mapping for dialysis access HISTORY: End-stage renal disease. TECHNIQUE: Multiplanar grayscale and color Doppler images were obtained in a bilateral upper extremit y venous ultrasound. Spectral analysis of the Doppler waveforms of the vessels were performed. FINDINGS: The bilateral internal jugular, subclavian, and axillary veins are patent without evidence of thrombus. Right brachial artery 4.8 mm Right radial artery 3.2 mm Right ulnar artery 1.1 mm Left brachial artery 6.0 mm Left radial artery 3.6 mm Left ulnar artery 1.5 mm RIGHT CEPHALIC VEIN in millimeters 0.9 -- Shoulder 1.7 -- Upper arm 2.1 -- Mid upper arm 1.4-- Just proximal to the elbow 0.8 -- Just distal to the elbow 1.2 -- Forearm Not visualized -- Wrist RIGHT BASILIC VEIN in millimeters 4.3 -- Shoulder 3.8 -- Upper arm 2.5 -- Mid upper arm 2.1 -- Just proximal to the elbow 1.0 -- Just distal to the elbow 1.5 -- Forearm 1.0 -- Wrist LEFT CEPHALIC VEIN in millimeters Not visualized in the upper arm. 1.1 -- Just distal to the elbow 0.6 -- Forearm 1.0 -- Wrist LEFT BASILIC VEIN in millimeters 1.6 -- Shoulder 1.4 -- Upper arm 1.4 -- Mid upper arm 2.0 -- Just proximal to the elbow 1.0 -- Just distal to the elbow 0.8 -- Forearm Not visualized -- Wrist IMPRESSION: Vein mapping for dialysis access as above
[2020-07-27] MEDS: Piperacillin/Tazobactam 2.25 GM in Sodium Chloride 0.9% 100 ML IVPB SCH ×2 (11:16→17:28)
--- NOTE | 2020-07-27 11:31 | PRG ---
DATE OF SERVICE: SUBJECTIVE: A 75-year-old gentleman being seen for acute kidney injury. Patient denies any nausea, vomiting, or chest pain. The patient says his weakness is improved. PHYSICAL EXAMINATION: General: The patient is awake and alert. Vital Signs: Afebrile, pulse 90, breathing at 16, blood pressure 112/58. HEENT: Head normocephalic and atraumatic. Eyes intact, no ulcers. Nose intact, no ulcers. Ears intact, no ulcers. Neck: Supple. No JVD. Chest: Symmetrical and clear. Cardiovascular: Shows S1 and S2, no rub, no murmur. Gastrointestinal: Abdomen is soft, bowel sounds positive. Extremities: Show no edema or ulcers. Skin: Shows no rash or petechiae. Musculoskeletal: Shows no joint swelling or stiffness. Genitourinary: Shows no Marrufo or CVA tenderness. Neurologic: Motor intact. Cranial nerves intact. LABORATORY DATA: Hemoglobin 8.3. Sodium is 123. ASSESSMENT/RECOMMENDATION: 1. Acute kidney injury with chronic kidney disease stage 4, improved. The patient is nonoliguric. 2. Hyponatremia, corrected mildly. 3. Hyperkalemia, improved. We will follow patient's labs. No indication for dialysis at this time. Job ID: [id number]
--- NOTE | 2020-07-27 11:47 | PDOC.CPN ---
- Subjective Date: 07/27/20 Time: 11:41 Interval history: He had HD yesterday and since his K and Na improved his HR has been in the 80's to 100's. His only complaint is neck pain which is chronic. - Review of Systems General: denies: fever/chills, weight/appetite/sleep changes, night sweats, fatigue Respiratory: denies: cough, congestion, shortness of breath, exercise intolerance Cardiovascular: denies: chest pain, palpitation, edema, paroxysmal nocturnal dyspnea, orthopnea Gastrointestinal: denies: nausea, vomiting, diarrhea, constipation, abd pain, GI bleeding Musculoskeletal: reports: pain. denies: tenderness, stiffness, swelling, arthritis/arthralgias Neurological: denies: numbness, syncope, seizure, weakness - Objective Allergies/Adverse Reactions: Allergies Allergy/AdvReac Type Severity Reaction Status Date / Time No Known Allergies Allergy Verified 07/27/20 08:02 Visit Medications: Current Medications Hydrocodone Bitart/Acetaminophen (Hydrocodone/Acetaminophen 5/325 Mg Tablet) 1 tab PO Q4H PRN PRN Reason: Moderate Pain (4-6) Albuterol/Ipratropium (Ipratropium/Albuterol Sulfate 3 Ml Neb) 3 ml NEB [id number] PRN PRN Reason: SOB &/or Wheezing Last Admin: 07/26/20 18:45 Dose: 3 ml Documented by: Atorvastatin Calcium (Atorvastatin Calcium 20 Mg Tab) 20 mg PO HS SABAS Last Admin: 07/26/20 23:51 Dose: Not Given Documented by: Dextrose/Water (Dextrose 50% Abboject 50 Ml Syringe) 25 gm SLOW IVP PRN PRN PRN Reason: Hypoglycemia Glucagon (Glucagon 1 Mg/Ml Vial) 1 mg IM PRN PRN PRN Reason: Hypoglycemia Dextrose/Water (D5w) 1,000 mls @ 0 mls/hr IV .Q0M PRN PRN Reason: Hypoglycemia Dopamine HCl/Dextrose (Dopamine 400 Mg/D5w 250 Ml) 250 mls @ 0 mls/hr IVPB INF SABAS; Protocol Last Admin: 07/27/20 03:34 Dose: 250 mls Documented by: Piperacillin Sod/Tazobactam (Sod 2.25 gm/ Sodium Chloride) 100 mls @ 200 mls/hr IVPB Q6HR SABAS Last Admin: 07/27/20 11:16 Dose: 100 mls Documented by: Insulin Human Lispro (Humalog 300 Units/3 Ml Vial) 0 units SC .MILD SLIDING SCALE PRN PRN Reason: Mild Correctional Scale Last Admin: 07/27/20 04:22 Dose: 3 unit Documented by: Methylprednisolone Sodium Succinate (Methylprednisolone Sod Succ 40 Mg Vial) 40 mg IVP DAILY [facility] Last Admin: 07/27/20 10:15 Dose: 40 mg Documented by: Miscellaneous Medication (Zosyn) 1 each IVPB PRN PRN PRN Reason: Pharmacy to dose Pantoprazole Sodium (Pantoprazole 40 Mg Tab) 40 mg PO DAILY [facility] Last Admin: 07/27/20 10:15 Dose: 40 mg Documented by: Vital Signs & Weight: Vital Signs Pulse Resp BP Pulse Ox 07/27/20 04:00 96 07/27/20 03:00 90 16 104/62 95 07/27/20 02:00 90 16 112/54 L 94 L 07/27/20 01:00 89 16 113/55 L 92 L Weight 194 lb - Physical Exam General: alert & oriented x3 HEENT: mucus membranes moist Neck: supple neck Cardiac: regular rate and rhythm Lungs: clear to auscultation Neuro: grossly intact Abdomen: active bowel sounds Extremities: 1+ LE edema Skin: clear Musculoskeletal: no pain - Labs Result Diagrams: 07/27/20 02:00 07/27/20 02:00 Troponin/CKMB Troponin I Less than 0.010 ng/mL (< 0.028) 07/26/20 13:56 - Telemetry Sinus rhythms and dysrhythmias: sinus rhythm - Assessment/Plan Assessment/Plan: 1. Bradycardia, resolved. 2. Hyperkalemia, resolved. 3. Hyponatremia, improved. 4. YONATHAN, improvements. PLAN: - Metabolic and electrolyte derangements likely cause of low HR, resolved now. - EF on echo normal today. - Will sign off. Please call with any questions.
--- NOTE | 2020-07-27 13:58 | PRG ---
DATE OF SERVICE: 07/27/2020 SUBJECTIVE: Steven Barbosa still is having arm numbness and neck pain. He is not requiring a chronotropic drug now. OBJECTIVE: VITAL SIGNS: His heart rates in the 90s, blood pressure 120/65, respiratory rates in the teens. LUNGS: Clear. HEART: Regular rhythm. ABDOMEN: Soft. LABORATORY DATA: White count 7, hemoglobin 8.3, platelets 288. Sodium 123, potassium 4.9, chloride 87, bicarb 23, BUN 50, creatinine 3.4. IMPRESSION: 1. Hyperkalemia-induced bradycardia. 2. Hyponatremia and hyperkalemia with a cortisol level of 5, it was drawn at 2 o'clock in the morning. He really needs to be switched to Decadron and have an ACTH stimulation test done in a couple of days. With regard to the reason he came to the hospital neck and arm pain, I would suggest neurosurgical input given that this is his primary complaint. He has an MRI that was done at the [facility]. I cannot access that. I have called one of the neurosurgeons to see if he can call me back and look at this MRI, but it would probably be best to obtain a Neurosurgical consult while he is in the hospital, this is why he called an ambulance. He has symptoms that I doubt injections will alleviate since he is complaining of numbness and weakness of both arms as well as intermittent numbness in his legs. 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 His electrolytes have improved. He really probably no longer needs telemetry monitoring given that the cause of his bradycardia has resolved. His bradycardia was also an asymptomatic incidental finding. There is a bed availability issue and it would be reasonable just to do frequent vital signs within the regular bed in my opinion. We will sign off. Job ID: [id number]
[2020-07-27] MEDS ORDERED: cefTRIAXone\\ROCEPHIN 1 GM in Sodium Chloride 0.9% 100 ML IVPB SCH (15:00)
[2020-07-27] MEDS ORDERED: Azithromycin 500 MG in Sodium Chloride 0.9% 250 ML 250 ML IVPB SCH (16:00)
[2020-07-27] MEDS ORDERED: CEFAZOLIN 2 GM in Premix Bag 1 BAG IVPB SCH (19:45)
--- NOTE | 2020-07-27 20:25 | PDOC.HOSPP ---
- Subjective Encounter Date: 07/27/20 Encounter Time: 12:00 Subjective: Patient up in bed complains of bilateral upper extremity tingling and pain - Objective Vital Signs & Weight: Vital Signs (12 hours) Temp 07/27/20 12:00 97.8 F Weight Weight 194 lb Most Recent Monitor Data Heart Rate from ECG 102 NIBP 115/62 NIBP BP-Mean 79 Respiration from ECG 13 SpO2 97 I&O: 07/26/20 07/27/20 07/28/20 06:59 06:59 06:59 Intake Total 100 110 Output Total 0 Balance 100 110 Result Diagrams: 07/27/20 02:00 07/27/20 02:00 Additional Labs: Accuchecks 07/27/20 07/27/20 07/27/20 20:16 17:02 12:45 POC Glucose 295 H 190 H 178 H 07/27/20 07/26/20 04:18 22:22 POC Glucose 244 H 198 H Hospitalist ROS - Review of Systems Cardiovascular: denies: chest pain, palpitations, orthopnea, paroxysmal noc. dyspnea, edema, light headedness, other Gastrointestinal: denies: nausea, vomiting, abdominal pain, diarrhea, constipation, melena, hematochezia, other Musculoskeletal: reports: hand pain - Medication Medications: Active Medications Generic Name Dose Route Start Last Admin Trade Name Freq PRN Reason Stop Dose Admin Albuterol/Ipratropium 3 ml 07/26/20 17:16 07/26/20 18:45 Ipratropium/Albuterol Sulfate 3 Ml Neb NEB 3 ml [id number] PRN Administration SOB &/or Wheezing Atorvastatin Calcium 20 mg 07/26/20 21:00 07/26/20 23:51 Atorvastatin Calcium 20 Mg Tab PO Not Given HS SABAS Dopamine HCl/Dextrose 250 mls @ 0 mls/hr 07/26/20 22:45 07/27/20 03:34 Dopamine 400 Mg/D5w 250 Ml IVPB 250 mls INF SABAS Administration Protocol Titrate Piperacillin Sod/Tazobactam 100 mls @ 200 mls/hr 07/27/20 12:00 07/27/20 17:28 Sod 2.25 gm/ Sodium Chloride IVPB 100 mls Q6HR SABAS Administration Insulin Human Lispro 0 units 07/26/20 16:43 07/27/20 17:27 Humalog 300 Units/3 Ml Vial SC 2 unit .MILD SLIDING SCALE PRN Administration Mild Correctional Scale Methylprednisolone Sodium Succinate 40 mg 07/27/20 09:00 07/27/20 10:15 Methylprednisolone Sod Succ 40 Mg Vial IVP 40 mg DAILY SABAS Administration Pantoprazole Sodium 40 mg 07/27/20 09:00 07/27/20 10:15 Pantoprazole 40 Mg Tab PO 40 mg DAILY SABAS Administration - Exam Neck: negative: supple, symmetric, no JVD, no thyromegaly, no lymphadenopathy, no carotid bruit, JVD Heart: negative: RRR, no murmur, no gallops, no rubs, normal peripheral pulses, irregular, diminshed peripheral pulses, murmur present, II/IV, III/IV Respiratory: negative: CTAB, no wheezes, no rales, no ronchi, normal chest expansion, no tachypnea, normal percussion, rales, rhonchi, tachypneic, wheezes Gastrointestinal: negative: soft, non-tender, non-distended, normal bowel sounds, no palpable masses, no hepatomegaly, no splenomegaly, no bruit, no guarding, no rigidity, tender to palpation, distended, diminished bowl sounds, voluntary guarding Extremities: 1+ LE edema Hosp A/P (1) Bradycardia Code(s): R00.1 - BRADYCARDIA, UNSPECIFIED Status: Acute (2) Acute kidney injury Code(s): N17.9 - ACUTE KIDNEY FAILURE, UNSPECIFIED Status: Acute (3) Hyperkalemia Code(s): E87.5 - HYPERKALEMIA Status: Acute (4) Upper extremity pain Status: Acute - Plan Patient's bradycardia improved after electrolyte was corrected. He did get dialysis x1 yesterday. We will continue to monitor patient. Patient had an MRI done at [facility] I believe. We will get the MRI results will get neurosurgery consult since patient has been having significant pain in his upper extremities especially his hands and tingling in bilateral upper extremities. We will also get physical therapy since he did fall 2 days ago. Speech to see the patient. We will continue Zosyn for now. We will stop steroids.
[2020-07-27] MEDS: Atorvastatin Calcium 20 MG TAB PO SCH (21:13)
[2020-07-27] MEDS: HYDROcodone/Acetaminophen 5/325 mg Tablet PO PRN (21:13)
[2020-07-28] MEDS: Piperacillin/Tazobactam 2.25 GM in Sodium Chloride 0.9% 100 ML IVPB SCH ×3 (00:20→12:00)
[2020-07-28] MEDS: HYDROcodone/Acetaminophen 5/325 mg Tablet PO PRN ×2 (07:40→21:05)
--- NOTE | 2020-07-28 10:43 | PRG ---
DATE OF SERVICE: 07/28/2020 SUBJECTIVE: A 75-year-old male, being seen for acute kidney injury. The patient denies any nausea, vomiting, or chest pain. PHYSICAL EXAMINATION: General: The patient is awake and alert. Vital Signs: Afebrile, pulse 85, breathing at 16, blood pressure 125/58. HEENT: Head normocephalic and atraumatic. Eyes intact, no ulcers. Nose intact, no ulcers. Ears intact, no ulcers. Neck: Supple. No JVD. Chest: Symmetrical and clear. Cardiovascular: Shows S1 and S2, no rub, no murmur. Gastrointestinal: Abdomen is soft, bowel sounds positive. Extremities: Show no edema or ulcers. Skin: Shows no rash or petechiae. Musculoskeletal: Shows no joint swelling or stiffness. Genitourinary: Shows no Marrufo or CVA tenderness. Neurologic: Motor intact. Cranial nerves intact. LABORATORY DATA: Showed hemoglobin 8.3. Creatinine is pending. ASSESSMENT AND PLAN: 1. Acute kidney injury with chronic kidney disease. Recheck labs. 2. Hypertension, stable. 3. Hyponatremia. Recheck labs. 4. We will evaluate need for dialysis after labs. Job ID: [id number]
--- NOTE | 2020-07-28 11:16 | MRI ---
MRI Lumbar Spine WO Con History: Lower extremity weakness Comparison: None. Findings: Aortic contour is nonaneurysmal. No hydronephrosis. Mild third spacing of fluid. No marrow infiltrative process. Old inferior endplate compression deformity of L1 and old superior en dplate compression deformity at T12. Conus medullaris terminates near the mid L1 vertebral body. Levels are as follows: L1/L2: Mild disc desiccation and height loss. Moderate disc bulge. Moderate hypertrophic facet arthro sis. Moderate bilateral neural foraminal narrowing. Spinal canal is narrowed to 9 mm. L2/L3: Minimal disc space height loss. Small disc bulge. Mild hypertrophic facet arthrosis. Right lat eral recess disc protrusion. Moderate right and mild left neural foraminal narrowing. L3/L4: Mild disc desiccation and minimal height loss. Mild right and moderate left hypertrophic facet arthrosis. Left extraforaminal annular fissure. Moderate disc osteophyte complex. Moderate bilateral neural foraminal narrowing with abutment of the left traversing nerve root. L4/L5: Mild disc desiccation and height loss. Severe facet arthrosis with flattening. 3 mm anterolist hesis. Uncovering of the disc and posterior displacement as an adaptation to subluxation. Ligamentum flavum is thickened enfolded. Spinal canal measures 6 mm. Severe right and moderate to sev ere left neural foraminal narrowing with abutment of both exiting and traversing nerve roots. L5/S1: Mild disc desiccation and height loss. Bilateral recess annular fissure. Moderate circumferent ial disc osteophyte complex. Moderate bilateral neural foraminal narrowing with abutment of both exiting nerve roots. IMPRESSION: Multilevel spondylosis as described, greatest at lower lumbar spine with multilevel neura l foraminal narrowing and nerve root abutment.
[2020-07-28] MEDS ORDERED: Gabapentin 100 MG CAP PO SCH (12:00)
--- NOTE | 2020-07-28 14:26 | PDOC.HOSPP ---
- Subjective Encounter Date: 07/28/20 Encounter Time: 14:24 Subjective: Patient seen and evaluated today. This is a very pleasant 75-year-old who presented to the hospital bilateral upper extremity tingling sensation associated with numbness. His friend who was with him reported that this been going on for at least a year. He recently saw his primary care provider who referred him to production painter. He was scheduled for an MRI which he did couple days ago that showed some mild to moderate degenerative disc disease. Neurosurgery was asked to evaluate him and the recommendation is still pending. MRI lumbar spine also showed some degenerative disc disease in the lower lumbar level. He is being evaluated by nephrology and he already had a session of dialysis after he was noted to be hyperkalemic. His serum potassium has since corrected. His creatinine is still elevated. - Objective Vital Signs & Weight: Vital Signs (12 hours) Temp Pulse Resp BP Pulse Ox 07/28/20 12:05 97.9 F 87 16 134/88 92 L 07/28/20 07:45 93 L 07/28/20 07:40 97.5 F L 88 16 127/60 93 L 07/28/20 04:00 97.3 F L 85 18 125/58 L 98 Weight Weight 195 lb 2 oz Most Recent Monitor Data Heart Rate from ECG 102 NIBP 115/62 NIBP BP-Mean 79 Respiration from ECG 13 SpO2 97 I&O: 07/27/20 07/28/20 07/29/20 06:59 06:59 06:59 Intake Total 100 110 Output Total 0 Balance 100 110 Result Diagrams: 07/27/20 02:00 07/27/20 02:00 Additional Labs: Accuchecks 07/28/20 07/28/20 07/27/20 11:32 05:26 20:16 POC Glucose 161 H 155 H 295 H 07/27/20 17:02 POC Glucose 190 H Radiology Reviewed by me: Yes EKG Reviewed by me: Yes Hospitalist ROS - Review of Systems Constitutional: reports: weakness Gastrointestinal: reports: nausea Musculoskeletal: reports: neck pain, shoulder pain Neurological: reports: weakness, numbness, incoordination - Medication Medications: Active Medications Generic Name Dose Route Start Last Admin Trade Name Freq PRN Reason Stop Dose Admin Hydrocodone Bitart/Acetaminophen 1 tab 07/26/20 23:04 07/28/20 07:40 Hydrocodone/Acetaminophen 5/325 Mg Tablet PO 1 tab Q4H PRN Administration Moderate Pain (4-6) Albuterol/Ipratropium 3 ml 07/26/20 17:16 07/26/20 18:45 Ipratropium/Albuterol Sulfate 3 Ml Neb NEB 3 ml [id number] PRN Administration SOB &/or Wheezing Atorvastatin Calcium 20 mg 07/26/20 21:00 07/27/20 21:13 Atorvastatin Calcium 20 Mg Tab PO 20 mg HS SABAS Administration Piperacillin Sod/Tazobactam 100 mls @ 200 mls/hr 07/27/20 12:00 07/28/20 12:00 Sod 2.25 gm/ Sodium Chloride IVPB 100 mls Q6HR SABAS Administration Insulin Human Lispro 0 units 07/26/20 16:43 07/27/20 21:14 Humalog 300 Units/3 Ml Vial SC 4 unit .MILD SLIDING SCALE PRN Administration Mild Correctional Scale Pantoprazole Sodium 40 mg 07/27/20 09:00 07/28/20 07:40 Pantoprazole 40 Mg Tab PO 40 mg DAILY SABAS Administration - Exam General Appearance: awake alert Eye: PERRL ENT: normocephalic atraumatic Neck: supple Heart: RRR Respiratory: CTAB, no wheezes, no rales Gastrointestinal: soft, non-tender, non-distended, normal bowel sounds Neurological: cranial nerve grossly intact, normal sensation to touch Musculoskeletal: normal tone Psychiatric: normal affect, normal behavior, A&O x 3 Hosp A/P (1) Acute kidney injury Code(s): N17.9 - ACUTE KIDNEY FAILURE, UNSPECIFIED Status: Acute Plan: His creatinine is higher than the previous one earlier from 2019. This appears to be acute on chronic kidney disease at least stage III may be a stage IV. He had an emergent dialysis on admission after he was noted to have hyperkalemia with potassium greater than 6. Nephrology evaluation is ongoing. It is unclear if he will need more dialysis going forward. (2) Upper extremity pain Status: Acute Qualifiers: Laterality: bilateral Qualified Code(s): M79.601 - Pain in right arm; M79.602 - Pain in left arm Plan: I have reached out to neurosurgery regarding the MRI findings. We will await their recommendations. - Plan old records reviewed/req, PT/OT, speech therapy
[2020-07-28 17:29] LABS: Anion Gap 17 mmol/L (10-20); BUN (Urea Nitrogen) 54 mg/dL (8.4-25.7); Calc. Creatinine Clearance 23 mL/min (70-130); Calcium 8.5 mg/dL (7.8-10.44); Carbon Dioxide 23 mmol/L (23-31); Chloride 93 mmol/L (98-107); Glucose 234 mg/dL (83-110); Sodium 129 mmol/L (136-145)
[2020-07-28] MEDS: HumaLOG 300 UNITS/3 ML VIAL SC PRN ×2 (18:11→21:05)
[2020-07-28] MEDS: Atorvastatin Calcium 20 MG TAB PO SCH (21:05)
[2020-07-29 04:49] LABS: #Lymphocytes 1.2 thou/uL (1.20-3.40); #Monocytes 0.9 thou/uL (0.11-0.59); #Neutrophils 8.9 thou/uL (1.40-6.50); %Eosinophils 0.2 % (0.0-10.0); %Lymphocytes 10.7 % (21.0-51.0); %Monocytes 8.2 % (0.0-10.0); %Neutrophils 80.8 % (42.0-75.0); Hemoglobin 8.3 g/dL (14.0-18.0); Mean Corpuscular HGB CONC 33.7 g/dL (32.0-36.0); Mean Corpuscular Hemoglobin 31.8 pg (27.0-31.0); Mean Corpuscular Volume 94.3 fL (78.0-98.0); Mean Platelet Volume 5.8 fL (7.4-10.4); Platelet Count 298 thou/uL (130-400); RBC Distribution Width 11.2 % (11.5-14.5)
[2020-07-29 05:12] LABS: Anion Gap 13 mmol/L (10-20); BUN (Urea Nitrogen) 52 mg/dL (8.4-25.7); Calc. Creatinine Clearance 25 mL/min (70-130); Calcium 8.3 mg/dL (7.8-10.44); Carbon Dioxide 28 mmol/L (23-31); Chloride 96 mmol/L (98-107); Glucose 142 mg/dL (83-110); Sodium 133 mmol/L (136-145)
[2020-07-29] MEDS: HYDROcodone/Acetaminophen 5/325 mg Tablet PO PRN ×3 (08:31→17:08)
[2020-07-29] MEDS: Dexamethasone 4 MG TAB PO SCH (08:31)
[2020-07-29] MEDS: Gabapentin 100 MG CAP PO SCH (08:32)
[2020-07-29] MEDS ORDERED: methylPREDNISolone Sod Succ 40 MG VIAL IVP SCH (09:00)
--- NOTE | 2020-07-29 12:16 | PDOC.HOSPP ---
- Subjective Encounter Date: 07/29/20 Encounter Time: 12:14 Subjective: Discussed this case with physician retail event and sales assistant covering for neurosurgery. The patient is now felt to have significant disc disease that would require surgical intervention. He continues to complain about tingling sensation and pain on his upper extremities. We will have him set up to do nerve conduction study to the neurologist clinic as outpatient. This was explained to the patient and he is in agreement. - Objective Vital Signs & Weight: Vital Signs (12 hours) Temp Pulse Resp BP Pulse Ox 07/29/20 11:46 98.2 F 68 18 126/62 78 L 07/29/20 07:37 98.2 F 70 19 136/78 100 07/29/20 03:37 97.7 F 65 20 137/62 93 L Weight Weight 196 lb Most Recent Monitor Data Heart Rate from ECG 102 NIBP 115/62 NIBP BP-Mean 79 Respiration from ECG 13 SpO2 97 I&O: 07/28/20 07/29/20 07/30/20 06:59 06:59 06:59 Intake Total 110 300 Balance 110 300 Result Diagrams: 07/29/20 04:37 07/29/20 04:37 Additional Labs: Accuchecks 07/29/20 07/28/20 07/28/20 05:36 19:39 16:55 POC Glucose 140 H 229 H 224 H Radiology Reviewed by me: Yes EKG Reviewed by me: Yes Hospitalist ROS - Review of Systems Constitutional: reports: weakness Gastrointestinal: reports: nausea Musculoskeletal: reports: shoulder pain, arm pain, hand pain - Medication Medications: Active Medications Generic Name Dose Route Start Last Admin Trade Name Freq PRN Reason Stop Dose Admin Hydrocodone Bitart/Acetaminophen 1 tab 07/26/20 23:04 07/29/20 08:31 Hydrocodone/Acetaminophen 5/325 Mg Tablet PO 1 tab Q4H PRN Administration Moderate Pain (4-6) Albuterol/Ipratropium 3 ml 07/26/20 17:16 07/26/20 18:45 Ipratropium/Albuterol Sulfate 3 Ml Neb NEB 3 ml [id number] PRN Administration SOB &/or Wheezing Atorvastatin Calcium 20 mg 07/26/20 21:00 07/28/20 21:05 Atorvastatin Calcium 20 Mg Tab PO 20 mg HS SABAS Administration Dexamethasone 4 mg 07/29/20 08:00 07/29/20 08:31 Dexamethasone 4 Mg Tab PO 4 mg QAM-WM SABAS Administration Gabapentin 100 mg 07/29/20 09:00 07/29/20 08:32 Gabapentin 100 Mg Cap PO 100 mg DAILY SABAS Administration Insulin Human Lispro 0 units 07/26/20 16:43 07/28/20 21:05 Humalog 300 Units/3 Ml Vial SC 3 unit .MILD SLIDING SCALE PRN Administration Mild Correctional Scale Pantoprazole Sodium 40 mg 07/27/20 09:00 07/29/20 08:32 Pantoprazole 40 Mg Tab PO 40 mg DAILY SABAS Administration - Exam General Appearance: NAD, awake alert Eye: PERRL, anicteric sclera ENT: normocephalic atraumatic, no oropharyngeal lesions Neck: supple, symmetric, no JVD Heart: RRR Respiratory: CTAB, no wheezes, no rales Gastrointestinal: soft, non-tender, non-distended Extremities: no cyanosis, no clubbing Skin: normal turgor, no lesions Neurological: cranial nerve grossly intact, normal sensation to touch Psychiatric: normal affect, normal behavior, A&O x 3 Hosp A/P (1) Acute kidney injury Code(s): N17.9 - ACUTE KIDNEY FAILURE, UNSPECIFIED Status: Acute Plan: His renal function appears to have improved slightly. I will discuss with nephrology if the patient will need further dialysis going forward. (2) Upper extremity pain Status: Acute Qualifiers: Laterality: bilateral Qualified Code(s): M79.601 - Pain in right arm; M79.602 - Pain in left arm - Plan old records reviewed/req, PT/OT, out of bed/ambulate 07/29/2020. Patient was admitted with pain and tingling sensation on his upper extremity worse on the left. I did discuss with neurosurgery who does not plan on any surgical intervention at the moment. I discussed with the patient about epidural steroid injection and outpatient nerve conduction study. He is open to trying both. We will continue supportive care with pain control.
--- NOTE | 2020-07-29 16:03 | PRG ---
DATE OF SERVICE: 07/29/2020 SUBJECTIVE: A 75-year-old male, being seen for acute kidney injury. The patient denied nausea, vomiting, or chest pain. PHYSICAL EXAMINATION: General: The patient is awake and alert. Vital Signs: Afebrile, pulse 70, breathing at 16, blood pressure 136/78. HEENT: Head normocephalic and atraumatic. Eyes intact, no ulcers. Nose intact, no ulcers. Ears intact, no ulcers. Neck: Supple. No JVD. Chest: Symmetrical and clear. Cardiovascular: Shows S1 and S2, no rub, no murmur. Gastrointestinal: Abdomen is soft, bowel sounds positive. Extremities: Show no edema or ulcers. Skin: Shows no rash or petechiae. Musculoskeletal: Shows no joint swelling or stiffness. Genitourinary: Shows no Marrufo or CVA tenderness. Neurologic: Motor intact. Cranial nerves intact. LABORATORY DATA: Showed hemoglobin 8.2. Sodium 133, creatinine 3.1. ASSESSMENT AND PLAN: 1. Acute kidney injury with chronic kidney disease stage 4, improved. 2. Hypertension, stable. 3. Anemia, stable. 4. Hyponatremia, improved. No indication for dialysis at this time. We will follow labs closely. Job ID: [id number]
[2020-07-29] MEDS: HumaLOG 300 UNITS/3 ML VIAL SC PRN ×2 (17:09→21:20)
[2020-07-29] MEDS: Atorvastatin Calcium 20 MG TAB PO SCH (20:34)
[2020-07-30] MEDS: HYDROcodone/Acetaminophen 5/325 mg Tablet PO PRN (05:17)
[2020-07-30] MEDS: Dexamethasone 4 MG TAB PO SCH (07:48)
[2020-07-30] MEDS: Gabapentin 100 MG CAP PO SCH (07:48)
[2020-07-30] MEDS ORDERED: PROPOFOL 200 MG/20 ML VIAL ONE (08:42)
[2020-07-30] MEDS ORDERED: Fentanyl 100 MCG/2 ML VIAL ONE (09:05)
[2020-07-30] MEDS ORDERED: Propofol 1,000 MG/100 ML VIAL IV ONE (09:05)
[2020-07-30] MEDS ORDERED: Midazolam HCl 2 mg/2 ml Vial ONE (09:05)
[2020-07-30] MEDS ORDERED: Bupivacaine PF 0.5% 30 ML VIAL ONE (09:07)
[2020-07-30] MEDS ORDERED: Lidocaine 2% w/Epinephrine 1:200K 20 ML VIAL ONE (09:07)
[2020-07-30] MEDS ORDERED: Sodium Chloride 0.9% 20 ML ONE (09:07)
[2020-07-30] MEDS ORDERED: Bupivacaine 0.25% HCL 30 ML VIAL ONE (09:07)
[2020-07-30] MEDS ORDERED: Heparin 10,000 UNITS/ 10 ML VIAL ONE (09:07)
[2020-07-30] MEDS ORDERED: Sodium Chloride 0.9% 10 ML ONE (09:10)
--- NOTE | 2020-07-30 10:26 | RAD ---
Portable frontal chest radiograph: 07/30/2020 COMPARISON: 07/26/2020 HISTORY: Evaluate chest following central line placement FINDINGS: There is a left-sided vascular catheter with distal tip overlying the region of the proxima l right atrium. There is a right-sided dialysis catheter, distal tip overlying the SVC/cavoatrial junction. Nonspecific stable focal opacity noted in the right lung base. No pneumothorax. Mild pulmon toyin vascular congestion. IMPRESSION: Vascular catheters as detailed above-otherwise no significant interval change.
--- NOTE | 2020-07-30 11:15 | OP ---
DATE OF PROCEDURE: 07/30/2020 PREOPERATIVE DIAGNOSES: Acute renal failure previously normal renal function, diabetes, hypertension, and poor veins by ultrasound vein mapping. PROCEDURES PERFORMED: Right IJ cuffed tunneled hemodialysis catheter, AngioDynamics pre-curved left IJ central line. ANESTHESIA: Intravenous sedation local 0.5% Marcaine 30 mL mixed with 1% xylocaine with epinephrine 20 mL. Note, the patient did not have a fistula exploration as his veins were poor by vein mapping and I thought there was a good chance he could recover. If; however, his renal function does not recover, he is a good candidate for peritoneal dialysis and he may need access graft. We will follow this up as an outpatient. DESCRIPTION OF PROCEDURE: The patient was taken to the operating room, where under intravenous sedation, neck and chest were prepared with ChloraPrep and draped in routine fashion. Local anesthetic was infiltrated in the skin and subcutaneous tissue about the operative site. Using ultrasound guidance, the right and left internal jugular veins were cannulated with trocar catheter, J-wire threaded, trocar catheter removed. Skin site enlarged sharply. Stab incision was made over the right chest. Seldinger technique used to place a triple-lumen catheter on the left, removed the J-wire, securing the catheter with 3-0 nylon suture. Each port aspirated of blood, flushed with saline solution. Using the tunneling device, pre-curved AngioDynamics cuffed tunneled hemodialysis catheter tunneled between the 2 incisions, placed the fabric cuff beneath the skin exit site on the right side of the chest and catheter secured with 2 interrupted sutures of 3-0 nylon. Sterile dressing applied. Small and medium size dilators were placed with J-wire in the internal jugular vein removed. Dilator and Peel-Away sheath placed with J-wire in superior vena cava, dilator and J-wire removed. Catheter placed with Peel-Away sheath. Peel-Away sheath removed. Fluoroscopically catheter was noted to be in good position, as the platysma approximated with 4-0 Monocryl, skin with subdermal 4-0 Monocryl, and Holbrook glue applied. Each port aspirated of blood, flushed with saline solution, and heparinized saline solution, 1000 units of heparin per mL, indicating volume of the port. Job ID: [id number]
--- NOTE | 2020-07-30 13:15 | PDOC.HOSPP ---
- Subjective Encounter Date: 07/30/20 Encounter Time: 13:13 Subjective: Patient seen and evaluated. Had a chance to discuss the case with the on-call anesthesiologist/pain management. They will see him in consult and discuss options for epidural steroid injection. He could potentially be discharged over the next 24 hours. He will need outpatient follow-up scheduled with neurology Dr. Collado - Objective Vital Signs & Weight: Vital Signs (12 hours) Temp Pulse Resp BP BP Pulse Ox 07/30/20 10:45 98.3 F 87 16 138/65 94 L 07/30/20 07:42 97.9 F 91 18 147/68 H 94 L 07/30/20 04:00 97.6 F 84 12 145/72 H 94 L Weight Weight 190 lb Most Recent Monitor Data Heart Rate from ECG 102 NIBP 115/62 NIBP BP-Mean 79 Respiration from ECG 13 SpO2 97 I&O: 07/29/20 07/30/20 07/31/20 06:59 06:59 06:59 Intake Total 300 1440 Output Total 700 Balance 300 740 Result Diagrams: 07/29/20 04:37 07/29/20 04:37 Additional Labs: Accuchecks 07/30/20 07/30/20 07/29/20 11:03 06:22 20:27 POC Glucose 141 H 161 H 284 H 07/29/20 16:37 POC Glucose 324 H Radiology Reviewed by me: Yes EKG Reviewed by me: Yes Hospitalist ROS - Review of Systems Constitutional: reports: weakness Gastrointestinal: reports: nausea Neurological: reports: weakness - Medication Medications: Active Medications Generic Name Dose Route Start Last Admin Trade Name Freq PRN Reason Stop Dose Admin Hydrocodone Bitart/Acetaminophen 1 tab 07/26/20 23:04 07/30/20 05:17 Hydrocodone/Acetaminophen 5/325 Mg Tablet PO 1 tab Q4H PRN Administration Moderate Pain (4-6) Albuterol/Ipratropium 3 ml 07/26/20 17:16 07/26/20 18:45 Ipratropium/Albuterol Sulfate 3 Ml Neb NEB 3 ml [id number] PRN Administration SOB &/or Wheezing Atorvastatin Calcium 20 mg 07/26/20 21:00 07/29/20 20:34 Atorvastatin Calcium 20 Mg Tab PO 20 mg HS SABAS Administration Dexamethasone 4 mg 07/29/20 08:00 07/30/20 07:48 Dexamethasone 4 Mg Tab PO Not Given QAM-WM SABAS Gabapentin 100 mg 07/29/20 09:00 07/30/20 07:48 Gabapentin 100 Mg Cap PO Not Given DAILY SABAS Insulin Human Lispro 0 units 07/26/20 16:43 07/29/20 17:09 Humalog 300 Units/3 Ml Vial SC 5 unit .MILD SLIDING SCALE PRN Administration Mild Correctional Scale Insulin Human Lispro 0 units 07/29/20 20:40 07/29/20 21:20 Humalog 300 Units/3 Ml Vial SC 3 unit .BEDTIME SLIDING SC PRN Administration Bedtime Correctional Scale Pantoprazole Sodium 40 mg 07/27/20 09:00 07/30/20 07:48 Pantoprazole 40 Mg Tab PO Not Given DAILY SABAS - Exam General Appearance: NAD, awake alert Eye: PERRL, anicteric sclera ENT: normocephalic atraumatic, no oropharyngeal lesions Neck: supple, symmetric, no JVD, no thyromegaly Heart: RRR, no murmur, no gallops, no rubs, normal peripheral pulses Respiratory: CTAB, no wheezes, no rales, no ronchi, normal chest expansion Gastrointestinal: soft, non-tender, non-distended, normal bowel sounds Neurological: cranial nerve grossly intact, normal sensation to touch Psychiatric: normal affect, normal behavior, A&O x 3 Hosp A/P (1) Acute kidney injury Code(s): N17.9 - ACUTE KIDNEY FAILURE, UNSPECIFIED Status: Acute (2) Upper extremity pain Status: Acute Qualifiers: Laterality: bilateral Qualified Code(s): M79.601 - Pain in right arm; M79.602 - Pain in left arm - Plan 07/29/2020. Patient was admitted with pain and tingling sensation on his upper extremity worse on the left. I did discuss with neurosurgery who does not plan on any surgical intervention at the moment. I discussed with the patient about epidural steroid injection and outpatient nerve conduction study. He is open to trying both. We will continue supportive care with pain control. 07/30/2020. I discussed the case with a silo painter who has kindly agreed to see the patient in consult. They will schedule him for [facility] hopefully pretty soon. We can plan for discharge home or to rehab shortly afterwards. PT is recommending home health with therapy and this can be arranged through the case management department.
[2020-07-30] MEDS: HumaLOG 300 UNITS/3 ML VIAL SC PRN ×2 (16:53→21:54)
--- NOTE | 2020-07-30 17:53 | PRG ---
DATE OF SERVICE: 07/30/2020 SUBJECTIVE: Patient was seen and examined at bedside and overnight events noted. Patient denies shortness of breath or cramps or chest pain or palpitation. No Nausea or vomiting or diarrhea or fever or chills. OBJECTIVE: GENERAL: This elderly male, in no apparent distress. VITAL SIGNS: Temperature 98.3, pulse 79, respiratory rate16, blood pressure 132/65. Musculoskeletal : No tenderness, No edema HEENT: Atraumatic normocephalic Neck: Supple Cardiovascular: S1S2 heard, Rate and rhythm regular Respiratory: Clear to auscultation Gastrointestinal: Abdomen is soft Dermatologic : No skin rash Neurologic: Alert and awake and oriented X3 No focal neurologic deficits. Moving all the extremities. Psychiatric: Mood and affect normal LABORATORY DATA: Potassium 4.0, BUN is 52, and creatinine is 3.1. ASSESSMENT AND PLAN: 1. Acute kidney injury on chronic kidney stage 4. Recheck labs. 2. History of hypertension. 3. Anemia. 4. Hyponatremia. Recheck labs and monitor. The patient had one episode of dialysis and seems like making urine today. Denies any uremic symptoms and we will recheck labs in the morning. No dialysis planned for today. Job ID: [id number] [facility]
[2020-07-30] MEDS: Atorvastatin Calcium 20 MG TAB PO SCH (21:03)
[2020-07-31] MEDS: HYDROcodone/Acetaminophen 5/325 mg Tablet PO PRN ×2 (03:13→10:21)
[2020-07-31 07:18] LABS: Anion Gap 13 mmol/L (10-20); BUN (Urea Nitrogen) 36 mg/dL (8.4-25.7); Calc. Creatinine Clearance 36 mL/min (70-130); Calcium 8.9 mg/dL (7.8-10.44); Carbon Dioxide 31 mmol/L (23-31); Chloride 98 mmol/L (98-107); Glucose 115 mg/dL (83-110); Potassium 3.9 mmol/L (3.5-5.1); Sodium 138 mmol/L (136-145)
[2020-07-31] MEDS: Dexamethasone 4 MG TAB PO SCH (10:20)
[2020-07-31] MEDS: Gabapentin 100 MG CAP PO SCH (10:22)
[2020-07-31] MEDS ORDERED: Sodium Chloride 0.9% (PF) 10 ML VIAL ONE (11:20)
[2020-07-31] MEDS ORDERED: Lidocaine 2% MPF 10 ML AMP (For Epidural Use) ONE (11:20)
[2020-07-31] MEDS ORDERED: Iopamidol-M 300 61% 15 ML VIAL ONE (11:20)
--- NOTE | 2020-07-31 13:54 | PDOC.HOSPP ---
- Subjective Encounter Date: 07/31/20 Encounter Time: 13:52 Subjective: Mr. Barbosa was seen and evaluated today. He went down for epidural steroid injection which he seems to have tolerated well. He has no other complaint today. He will likely be discharged home here in the next 24 hours. He will need his tunnel catheter removed prior to discharge. - Objective Vital Signs & Weight: Vital Signs (12 hours) Temp Pulse Pulse Pulse Resp BP BP 07/31/20 11:56 92 80 185/81 H 163/77 H 07/31/20 11:00 97.7 F 77 16 07/31/20 10:23 97.7 F 79 16 07/31/20 07:49 07/31/20 07:05 98.5 F 72 16 07/31/20 04:00 97.8 F 76 10 L BP Pulse Ox 07/31/20 11:56 07/31/20 11:00 155/72 H 99 07/31/20 10:23 155/73 H 99 07/31/20 07:49 94 L 07/31/20 07:05 154/72 H 94 L 07/31/20 04:00 163/77 H 94 L Weight Weight 179 lb 8 oz Most Recent Monitor Data Heart Rate from ECG 102 NIBP 115/62 NIBP BP-Mean 79 Respiration from ECG 13 SpO2 97 I&O: 07/30/20 07/31/20 08/01/20 06:59 06:59 06:59 Intake Total 1440 600 Output Total 700 Balance 740 600 Result Diagrams: 07/29/20 04:37 07/31/20 06:30 Additional Labs: Accuchecks 07/31/20 07/31/20 07/30/20 10:33 05:48 20:42 POC Glucose 113 H 119 H 205 H 07/30/20 16:38 POC Glucose 163 H Radiology Reviewed by me: Yes EKG Reviewed by me: Yes Hospitalist ROS - Review of Systems Constitutional: reports: weakness Neurological: reports: weakness, numbness - Medication Medications: Active Medications Generic Name Dose Route Start Last Admin Trade Name Freq PRN Reason Stop Dose Admin Hydrocodone Bitart/Acetaminophen 1 tab 07/26/20 23:04 07/31/20 10:21 Hydrocodone/Acetaminophen 5/325 Mg Tablet PO 1 tab Q4H PRN Administration Moderate Pain (4-6) Albuterol/Ipratropium 3 ml 07/26/20 17:16 07/26/20 18:45 Ipratropium/Albuterol Sulfate 3 Ml Neb NEB 3 ml [id number] PRN Administration SOB &/or Wheezing Atorvastatin Calcium 20 mg 07/26/20 21:00 07/30/20 21:03 Atorvastatin Calcium 20 Mg Tab PO 20 mg HS SABAS Administration Dexamethasone 4 mg 07/29/20 08:00 07/31/20 10:20 Dexamethasone 4 Mg Tab PO 4 mg QAM-WM SABAS Administration Gabapentin 100 mg 07/29/20 09:00 07/31/20 10:22 Gabapentin 100 Mg Cap PO 100 mg DAILY SABAS Administration Insulin Human Lispro 0 units 07/26/20 16:43 07/30/20 16:53 Humalog 300 Units/3 Ml Vial SC 2 unit .MILD SLIDING SCALE PRN Administration Mild Correctional Scale Insulin Human Lispro 0 units 07/29/20 20:40 07/30/20 21:54 Humalog 300 Units/3 Ml Vial SC 2 unit .BEDTIME SLIDING SC PRN Administration Bedtime Correctional Scale Pantoprazole Sodium 40 mg 07/27/20 09:00 07/31/20 10:22 Pantoprazole 40 Mg Tab PO 40 mg DAILY SABAS Administration - Exam General Appearance: NAD, awake alert Eye: PERRL, anicteric sclera ENT: normocephalic atraumatic, no oropharyngeal lesions Neck: supple, symmetric, no JVD Heart: RRR, no murmur, no gallops, no rubs, normal peripheral pulses Respiratory: CTAB, no wheezes, no rales, no ronchi, normal chest expansion Gastrointestinal: soft, non-tender, non-distended Neurological: cranial nerve grossly intact Psychiatric: normal affect, normal behavior, A&O x 3 Hosp A/P (1) Acute kidney injury Code(s): N17.9 - ACUTE KIDNEY FAILURE, UNSPECIFIED Status: Acute (2) Upper extremity pain Status: Acute Qualifiers: Laterality: bilateral Qualified Code(s): M79.601 - Pain in right arm; M79.602 - Pain in left arm - Plan 07/29/2020. Patient was admitted with pain and tingling sensation on his upper extremity worse on the left. I did discuss with neurosurgery who does not plan on any surgical intervention at the moment. I discussed with the patient about epidural steroid injection and outpatient nerve conduction study. He is open to trying both. We will continue supportive care with pain control. 07/30/2020. I discussed the case with a lead painter who has kindly agreed to see the patient in consult. They will schedule him for [facility] hopefully pretty soon. We can plan for discharge home or to rehab shortly afterwards. PT is recommending home health with therapy and this can be arranged through the case management department. 07/31/2020. The patient likely will be discharged over the next 24 hours. He had the epidural steroid injection today and seems to be doing very well. He will need daily dialysis catheter removed prior to discharge home.
[2020-07-31] MEDS: HumaLOG 300 UNITS/3 ML VIAL SC PRN (17:13)
--- NOTE | 2020-07-31 18:20 | PRG ---
DATE OF SERVICE: 07/31/2020 SUBJECTIVE: Patient was seen and examined at bedside and overnight events noted. Patient denies any shortness of breath or chest pain or palpitation. No history of nausea or vomiting or diarrhea or fever or chills or cramps. OBJECTIVE: GENERAL: This is a well-built male, in no apparent distress. VITAL SIGNS: Temperature 98.6. Heart rate 72. Respiratory rate 16. Blood pressure 161/77. HEENT: Atraumatic, normocephalic. Oral mucosa is moist. NECK: Supple. CARDIOVASCULAR: S1, S2 heard. Rate and rhythm regular. RESPIRATORY: Clear to auscultation. GASTROINTESTINAL: Abdomen is soft. MUSCULOSKELETAL: No tenderness. No edema. DERMATOLOGIC: No skin rash. NEUROLOGIC: Alert and awake and oriented x3. No focal neurologic deficits. Moving all the extremities. PSYCHIATRIC: Mood and affect normal. LABORATORY DATA: Potassium 3.9, BUN is 36, and creatinine is 1.9. ASSESSMENT AND PLAN: 1. Acute kidney injury on chronic kidney disease, stage 3. Renal function with much improvement and he is making urine. No need for dialysis. I advised Dr. Morales to currently remove the tunneled dialysis catheter. Follow up with Dr. Tolbert in a week. 2. History of hypertension. 3. Anemia. 4. Hyponatremia. Labs are looking much better. It seems like he is having recovery and advised to have close followup with Dr. Tolbert. We will remove tunneled dialysis catheter for now. Monitor urine output and advised to call the clinic if there is any change in the clinical status. Job ID: [id number]
--- NOTE | 2020-07-31 19:34 | OP ---
DATE OF PROCEDURE: 07/31/2020 PROCEDURES PERFORMED: 1. Cervical epidural steroid injection. 2. Fluoroscopic guidance for above. PROCEDURE DETAILS: Informed consent was obtained after discussing the risks, benefits, and alternatives of the procedure. The patient denied recent fever, infection, or use of anticoagulation. The patient was placed in the prone position. Fluoroscopic guidance was used to identify the appropriate spinal level, and Hibiclens was used topically for antisepsis. Anesthesia was provided with 2% lidocaine. Location of entry level business analyst was C7-T1. DESCRIPTION OF PROCEDURE: Fluoroscopic images were used to identify the appropriate level. The skin was prepped with chlorhexidine, and sterile drape was applied. Lidocaine 2% was used for skin and subcutaneous anesthesia, total volume 5 mL. A 20-gauge Tuohy needle was advanced through ligamentum flavum, and a loss of resistance technique was used to identify the epidural space. 1 mL of contrast was used to confirm proper location. This was identified easily. After negative aspiration, methylprednisolone 80 mg was injected in solution with preservative-free normal saline, total volume of 3 mL. No complications were noted. Vital signs were monitored before, during, and after the procedure and noted in the nursing documentation. Postprocedure, the patient was monitored following the procedure, and the vital signs and neurologic status were assessed. The patient tolerated the procedure well. Job ID: [id number]
[2020-07-31] MEDS: Atorvastatin Calcium 20 MG TAB PO SCH (20:46)
[2020-08-01] MEDS: HumaLOG 300 UNITS/3 ML VIAL SC PRN (06:04)
--- NOTE | 2020-08-01 06:21 | OP ---
DATE OF PROCEDURE: 07/31/2020 PREOPERATIVE DIAGNOSIS: Acute kidney injury, recovered renal function. POSTOPERATIVE DIAGNOSIS: Acute kidney injury, recovered renal function. PROCEDURE PERFORMED: Removal of right IJ cuffed tunneled hemodialysis catheter. ANESTHESIA: None. DESCRIPTION OF PROCEDURE: With the patient at the bedside, the sutures removed from the cuffed tunneled catheter right IJ and the catheter removed without difficulty as it had not been long enough to have significant ingrowth into the cuff. Gentle tug was required. Hemostasis gained with local pressure. The patient tolerated the procedure well. Job ID: [id number]
[2020-08-01] MEDS: Gabapentin 100 MG CAP PO SCH (08:03)
[2020-08-01] MEDS: Dexamethasone 4 MG TAB PO SCH (08:05)
[2020-08-01 08:10] VITALS: BP 164/77; TEMP 98.8
--- NOTE | 2020-08-01 11:56 | PRG ---
DATE OF SERVICE: 08/01/2020 SUBJECTIVE: Patient was seen and examined at bedside and overnight events noted. Patient denies shortness of breath or cramps or chest pain or palpitation. No Nausea or vomiting or diarrhea or fever or chills. OBJECTIVE: GENERAL: This is a well-developed male in no apparent distress. VITAL SIGNS: Temperature 98.8. Pulse 72. Respiratory rate noted Blood pressure 164/77. Musculoskeletal : No tenderness, No edema HEENT: Atraumatic normocephalic Neck: Supple Cardiovascular: S1S2 heard, Rate and rhythm regular Respiratory: Clear to auscultation Gastrointestinal: Abdomen is soft Dermatologic : No skin rash Neurologic: Alert and awake and oriented X3 No focal neurologic deficits. Moving all the extremities. Psychiatric: Mood and affect normal LABS: No labs done. ASSESSMENT AND PLAN: 1. Acute kidney injury on chronic kidney disease 3, getting better. Monitor labs. 2. History of hypertension. 3. Anemia. 4. Hyponatremia. The patient will be going home today. Follow up with Dr. Tolbert in 1 week. Job ID: [id number] MTDD
--- NOTE | 2020-08-01 23:46 | CON ---
DATE OF CONSULTATION: 07/31/2020 CHIEF COMPLAINT: Neck pain, radiating to his bilateral upper extremities. HISTORY OF PRESENT ILLNESS: A 75-year-old male with complex medical history who is recently admitted to the hospital for neck pain radiating to the bilateral upper extremities as well as other uncontrolled medical problems. Per patient's history, he has been having neck pain that radiates into both arms and hands with numbness and tingling bilaterally. This has been present for almost a year now. He had recently seen an outpatient pain physician who ordered a cervical MRI and has not followed up with him yet, but was planning on undergoing cervical epidural steroid injection in the near future. Since he has been inpatient, I was consulted to potentially perform the procedure before he goes home given the severity of his ongoing pain as well as numbness and tingling. His other medical conditions being managed by the consulting team. Overall, he seems to be stabilized here in the past few days. His pain is worse with any neck movement, improved with change in position. He is taking some [id number] medications as an outpatient without any relief. He denies any overt weakness, imbalance, or falls. He has not had any fever, chills, nausea, or vomiting. He has some mild cough for the past few days. No diarrhea, constipation, or other sick contacts. Denies any syncopal episodes. PAST MEDICAL HISTORY: Type 2 diabetes, hypertension, hyperlipidemia. PAST SURGICAL HISTORY: Colonoscopy, sinus surgery. SOCIAL HISTORY: Former smoker, quit greater than 10 years ago. He drinks about 6 drinks per day. Denies any drug use. He lives at home with his . ALLERGIES: HE HAS NO KNOWN DRUG ALLERGIES. HOME MEDICATIONS: 1. Amlodipine. 2. Pantoprazole. 3. Atorvastatin. 4. Metformin. 5. Acetaminophen with codeine and prednisone. REVIEW OF SYMPTOMS: Negative except for the ones mentioned in the HPI. PHYSICAL EXAMINATION: VITAL SIGNS: As recorded in his chart. GENERAL: He is awake, alert, and oriented x3. He does not appear in any acute distress. CARDIOVASCULAR: Sinus bradycardia. Normal pulses. LUNGS: Mild wheezing throughout. No acute respiratory distress. ABDOMEN: Soft. Bowel sounds present. EXTREMITIES: 1 to 2+ lower extremity edema. Otherwise, unremarkable. NEUROVASCULAR: No focal deficits noted. He does have decreased sensation in the bilateral upper extremities and hands. Normal sensation in the bilateral lower extremities. SPINE: Cervical spine exam, he has tenderness to palpation bilaterally in the paraspinal region. Limited range of motion of his neck due to discomfort. He has 1+ deep tendon reflexes equal bilaterally. Decreased sensation in the bilateral upper extremities. Normal muscle strength testing throughout. SKIN: No rashes. IMAGING STUDIES: Cervical MRI imaging shows multilevel degenerative disk disease with several disk protrusions, most significant at C4-C5 level, which causes mild irritation of his cord. No severe central canal stenosis. No obvious nerve root compression. Cervical spondylosis bilaterally throughout the cervical spine. ASSESSMENT AND PLAN: 1. A 75-year-old male with multiple medical conditions as well as exacerbation of chronic cervical radicular pain into the bilateral lower extremities. MRI suggestive of disk disease and possible mild cord impingement that could be suggestive of his symptoms. His pain has been uncontrolled despite medications and conservative methods. He is not taking any blood thinners currently and we will proceed with cervical epidural steroid injection to address his ongoing uncontrolled neck pain. 2. Regarding his other medical conditions, they are managed by the primary admitting team. I will plan to see him in followup as an outpatient in the next 2 to 3 weeks for ongoing management of his chronic pain conditions. Job ID: [id number] [facility]
--- NOTE | 2020-08-14 21:27 | PQF ---
CLINICAL DOCUMENTATION CLARIFICATION FORM: Dear : Jorden Forbes MD Date / Time: 08/15/2020 Please exercise your independent, professional judgment in responding to the clarification form. Clinical indicators are provided on the bottom of this form for your review Please check appropriate box(es) to clarify if the following diagnosis has been ruled in our ruled out: [ ] Ruled in Sepsis [ ] Continue to treat [ ] Resolved [ x ] Ruled out Sepsis [ ] Improving [ ] Cannot rule out diagnosis [ ] Other diagnosis (Please specify if any) [ ] Unable to determine In addition, please specify: Present on Admission (POA): [ ] Yes [ ] No [ ] Unable to determine Physician Signature: Date/Time: For continuity of documentation, please document condition throughout progress notes and discharge summary. Thank You. To be completed by CDI/Coding staff for physician review: Present Clinical Indicators - Signs / Symptoms / Labs Results and Location in Medical Record [x] sepsis ED provider report on 07/26 [x] Hypothermic and hypoxic on arrival ED provider report on 07/26 [x] If we suspect septic shock, a better medication would be levophed at that point for blood pressure more than dopamine Consult on 07/26 [x] Pneumonia ED provider report on 07/26 [x] Wbc-13.8 Laboratory on 07/26 [x] RR-22 Vitals on 07/26 Present Risk Factors Results and Location in Medical Record [x] Aged person 75 yrs ED provider report on 07/26 [x] Respiratory failure H&P on 07/26 [ ] [ ] Present Treatments Results and Location in Medical Record [x] Rocephin 1gm IV Medication on 07/26 [x] Azithromycin 500mg Medication on 07/26,07/27 [ ] [ ] CDS/Marzipan Molder Signature: AAS Phone #: Date/Time: 08/15/2020 This is a permanent part of the Medical Record [facility]
--- NOTE | 2020-08-14 21:28 | PQF ---
CLINICAL DOCUMENTATION CLARIFICATION FORM: Dear : Jorden Forbes MD Date / Time: 08/15/2020 Please exercise your independent, professional judgment in responding to the clarification form. Clinical indicators are provided on the bottom of this form for your review Please check appropriate box(es) to clarify if the following diagnosis has been ruled in our ruled out: [ ] Ruled in Pneumonia [ ] Continue to treat [ ] Resolved [ x ] Ruled out Pneumonia [ ] Improving [ ] Cannot rule out diagnosis [ ] Other diagnosis (Please specify if any) [ ] Unable to determine In addition, please specify: Present on Admission (POA): [ ] Yes [ ] No [ ] Unable to determine Physician Signature: Date/Time: For continuity of documentation, please document condition throughout progress notes and discharge summary. Thank You. To be completed by CDI/Coding staff for physician review: Present Clinical Indicators - Signs / Symptoms / Labs Results and Location in Medical Record [x] Pneumonia ED provider report on 07/26 [x] Hypothermic and hypoxic on arrival ED provider report on 07/26 [x] Upon reviewing his x-ray, there was a concern for some right upper lobe inflitrate &/or multilobar pneumonia H&P on 07/26 [x] Multilobar pneumonia, possibly Consult on 07/26 [x] He does have a little mild pulmonary edema, I do not really think he has a pneumonia Consult on 07/26 [x] Wbc-13.8 Laboratory on 07/26 Present Risk Factors Results and Location in Medical Record [x] Aged person 75 yrs ED provider report on 07/26 [x] Respiratory failure H&P on 07/26 [ ] [ ] Present Treatments Results and Location in Medical Record [x] Rocephin 1gm IV Medication on 07/26 [x] Azithromycin 500mg Medication on 07/26,07/27 [ ] [ ] CDS/Parts Department Supervisor Signature: AAS Phone #: Date/Time: 08/15/2020 This is a permanent part of the Medical Record [facility]
== END 2020-08-01 10:20 | disposition home health service (06) | DRG 673 ==
LOC: ERS 13:16 → ERHOLD 16:29 → IMCU/EMU 07-27 04:03 → 2NO 07-27 14:06
PROVIDERS: ADMIT Internal Medicine; ATTEND Hospitalist
PROC: 06HY33Z Insertion of Infusion Device into Lower Vein, Percutaneous Approach (ICD-10-PCS; 2020-07-26)
PROC: 5A1D70Z Performance of Urinary Filtration, Intermittent, Less than 6 Hours Per Day (ICD-10-PCS; 2020-07-26)
PROC: 0JH63XZ Insertion of Tunneled Vascular Access Device into Chest Subcutaneous Tissue and Fascia, Percutaneous Approach (ICD-10-PCS; principal; 2020-07-30)
PROC: 02HV33Z Insertion of Infusion Device into Superior Vena Cava, Percutaneous Approach (ICD-10-PCS; 2020-07-30)
PROC: 3E0S33Z Introduction of Anti-inflammatory into Epidural Space, Percutaneous Approach (ICD-10-PCS; 2020-07-31)
PROC: 0JPV3XZ Removal of Tunneled Vascular Access Device from Upper Extremity Subcutaneous Tissue and Fascia, Percutaneous Approach (ICD-10-PCS; 2020-07-31)
PROC: 02PYX3Z Removal of Infusion Device from Great Vessel, External Approach (ICD-10-PCS; 2020-07-31)
DX: N17.9 Acute kidney failure, unspecified (principal); J96.01 Acute respiratory failure with hypoxia; M50.00 Cervical disc disorder with myelopathy, unspecified cervical region; E87.1 Hypo-osmolality and hyponatremia; E87.2 Acidosis; I13.0 Hypertensive heart and chronic kidney disease with heart failure and stage 1 through stage 4 chronic kidney disease, or unspecified chronic kidney disease; N18.4 Chronic kidney disease, stage 4 (severe); M25.80 Other specified joint disorders, unspecified joint; R00.1 Bradycardia, unspecified; E78.00 Pure hypercholesterolemia, unspecified; I48.91 Unspecified atrial fibrillation; E87.5 Hyperkalemia; I50.9 Heart failure, unspecified; E11.42 Type 2 diabetes mellitus with diabetic polyneuropathy; Z20.822 Contact with and (suspected) exposure to COVID-19; E11.22 Type 2 diabetes mellitus with diabetic chronic kidney disease; M79.601 Pain in right arm; M79.602 Pain in left arm; Z79.899 Other long term (current) drug therapy; Z79.84 Long term (current) use of oral hypoglycemic drugs; Z87.891 Personal history of nicotine dependence
CPT/HCPCS: 0240U; 36415; 36416; 36556; 71045; 72148; 76770; 80048; 80053; 82330; 82533; 82803; 83605; 83735; 83880; 83930; 83935; 84300; 84443; 84484; 85025; 86704; 86706; 86803; 87040; 87340; 90935; 93005; 93306; 93970; 94640; 94760; 96365; 96366; 96367; 96374; 96375; 96376; C1751; C1752; G0257; J0456; J0690; J0696; J1040; J1265; J1642; J1644; J2001; J2250; J2543; J2704; J2920; J2930; J3010; J3490; J7620; J8540; Q9967; S0020

== ENCOUNTER 2023-07-15 10:52 | Outpatient (CLI) | payer MEDICARE, OTHER | END 2023-07-15 10:53 | disposition home or self-care (01) | LOC: RAD 10:52 | PROVIDERS: ATTEND Family Medicine | DX: M25.562 Pain in left knee (principal); M17.12 Unilateral primary osteoarthritis, left knee ==

== ENCOUNTER 2023-08-19 10:27 | Inpatient (IN) | payer MEDICARE ==
[2023-08-19 11:25] LABS: #Monocytes 0.6 thou/uL (0.11-0.59); %Basophils 0.2 % (0.0-1.0); %Eosinophils 0.3 % (0.0-10.0); %Lymphocytes 12.2 % (21.0-51.0); %Monocytes 8.6 % (0.0-10.0); %Neutrophils 76.8 % (42.0-75.0); Hematocrit 31.1 % (42.0-52.0); Hemoglobin 10.7 g/dL (14.0-18.0); Mean Corpuscular HGB CONC 34.4 g/dL (32.0-36.0); Mean Corpuscular Hemoglobin 31.5 pg (27.0-31.0); Mean Corpuscular Volume 91.5 fl (78.0-98.0); Mean Platelet Volume 8.5 fL (7.4-10.4); Platelet Count 241 10x3/uL (130-400); RBC Distribution Width 12.1 % (11.5-14.5); White Blood Cell (WBC) Count 6.5 10x3/uL (4.8-10.8)
[2023-08-19 11:50] LABS: ALT (SGPT) 10 U/L (8-55); AST (SGOT) 16 U/L (5-34); Albumin 3.9 g/dL (3.4-4.8); Alkaline Phosphatase 67 U/L (40-110); Anion Gap 14 mmol/L (10-20); BUN (Urea Nitrogen) 22 mg/dL (8.4-25.7); Bilirubin, Total 0.9 mg/dL (0.2-1.2); Calc. Creatinine Clearance 0 mL/min (70-130); Calcium 9.3 mg/dL (7.8-10.44); Carbon Dioxide 24 mmol/L (23-31); Chloride 93 mmol/L (98-107); Estimated GFR 34; Globulin 3.1 g/dL (2.4-3.5); Glucose 196 mg/dL (83-110); Potassium 3.9 mmol/L (3.5-5.1); Sodium 127 mmol/L (136-145)
[2023-08-19 11:53] LABS: Troponin I Less than 0.010 ng/mL (< 0.028)
[2023-08-19] MEDS ORDERED: Furosemide 40 MG (4 mL) VIAL ONE (13:21)
[2023-08-19] MEDS ORDERED: Acetaminophen 325 MG TAB PO PRN (14:55)
[2023-08-19] MEDS ORDERED: Ondansetron PF 4 MG/2 ML Vial IVP PRN (14:55)
[2023-08-19] MEDS ORDERED: Glucagon 1 MG/ML KIT IM PRN (14:55)
[2023-08-19] MEDS ORDERED: HumaLOG 300 UNITS/3 ML VIAL SC PRN (14:55)
[2023-08-19] MEDS ORDERED: Dextrose 5% in Water 1,000 ML IV PRN (14:55)
[2023-08-19] MEDS ORDERED: Ondansetron ODT 4 MG TAB PO PRN (14:55)
[2023-08-19] MEDS ORDERED: Dextrose 50% Abboject 50 ML SYRINGE SLOW IVP PRN (14:55)
[2023-08-19] MEDS ORDERED: Heparin 5,000 UNITS/ML VIAL ONE ×2 (15:17→21:44)
[2023-08-19] MEDS: Heparin 5,000 UNITS/ML VIAL SC SCH (15:21)
[2023-08-19 15:31] LABS: Troponin I 0.013 ng/mL (< 0.028)
[2023-08-19 19:37] LABS: Troponin I Less than 0.010 ng/mL (< 0.028)
[2023-08-19] MEDS ORDERED: traMADol HCl 50 MG TAB ONE (21:01)
[2023-08-19] MEDS: traMADol HCl 50 MG TAB PO PRN (21:06)
[2023-08-19] MEDS: hydrALAZINE 25 MG TAB PO SCH (21:08)
[2023-08-19] MEDS: Melatonin 3 MG TAB PO PRN (23:13)
[2023-08-20 00:46] VITALS: BMI 27.1
[2023-08-20 04:34] LABS: #Eosinphils 0.1 thou/uL (0.0-0.7); #Monocytes 0.8 thou/uL (0.11-0.59); #Neutrophils 2.5 thou/uL (1.40-6.50); %Basophils 0.2 % (0.0-1.0); %Eosinophils 1.4 % (0.0-10.0); %Lymphocytes 22.7 % (21.0-51.0); %Monocytes 17.9 % (0.0-10.0); %Neutrophils 56.9 % (42.0-75.0); Hematocrit 28.8 % (42.0-52.0); Hemoglobin 10.1 g/dL (14.0-18.0); Mean Corpuscular HGB CONC 35.1 g/dL (32.0-36.0); Mean Corpuscular Hemoglobin 31.7 pg (27.0-31.0); Mean Corpuscular Volume 90.3 fl (78.0-98.0); Platelet Count 237 10x3/uL (130-400); RBC Distribution Width 12.1 % (11.5-14.5); Red Blood Cell (RBC) Count 3.19 mill/uL (4.70-6.10); White Blood Cell (WBC) Count 4.4 10x3/uL (4.8-10.8)
[2023-08-20 04:55] LABS: Anion Gap 13 mmol/L (10-20); BUN (Urea Nitrogen) 20 mg/dL (8.4-25.7); Calc. Creatinine Clearance 41 mL/min (70-130); Calcium 8.8 mg/dL (7.8-10.44); Carbon Dioxide 28 mmol/L (23-31); Chloride 93 mmol/L (98-107); Estimated GFR 38; Glucose 107 mg/dL (83-110); Potassium 3.1 mmol/L (3.5-5.1); Sodium 131 mmol/L (136-145)
[2023-08-20] MEDS: Levothyroxine Sodium 25 MCG TAB PO SCH (05:16)
[2023-08-20] MEDS: Aspirin 81 mg Enteric Coated Tablet PO SCH (09:34)
[2023-08-20] MEDS: Atorvastatin Calcium 20 MG TAB PO SCH (09:34)
[2023-08-20] MEDS: Potassium Chloride 20 MEQ TAB PO SCH (09:35)
[2023-08-20] MEDS: Furosemide 40 MG (4 mL) VIAL SLOW IVP SCH ×2 (09:35→14:57)
[2023-08-20] MEDS: Metolazone 5 MG TAB PO SCH (12:46)
[2023-08-20] MEDS: HumaLOG 300 UNITS/3 ML VIAL SC PRN (12:47)
[2023-08-21 04:29] LABS: #Monocytes 0.9 thou/uL (0.11-0.59); #Neutrophils 2.5 thou/uL (1.40-6.50); %Basophils 0.2 % (0.0-1.0); %Eosinophils 0.7 % (0.0-10.0); %Lymphocytes 23.5 % (21.0-51.0); %Monocytes 19.2 % (0.0-10.0); %Neutrophils 55.3 % (42.0-75.0); Mean Corpuscular HGB CONC 34.4 g/dL (32.0-36.0); Mean Corpuscular Hemoglobin 31.2 pg (27.0-31.0); Mean Corpuscular Volume 90.7 fl (78.0-98.0); Mean Platelet Volume 8.9 fL (7.4-10.4); Platelet Count 259 10x3/uL (130-400); RBC Distribution Width 12.1 % (11.5-14.5); Red Blood Cell (RBC) Count 3.53 mill/uL (4.70-6.10); White Blood Cell (WBC) Count 4.4 10x3/uL (4.8-10.8)
[2023-08-21 05:01] LABS: Anion Gap 15 mmol/L (10-20); BUN (Urea Nitrogen) 20 mg/dL (8.4-25.7); Calc. Creatinine Clearance 37 mL/min (70-130); Calcium 9.4 mg/dL (7.8-10.44); Carbon Dioxide 33 mmol/L (23-31); Chloride 88 mmol/L (98-107); Estimated GFR 34; Glucose 112 mg/dL (83-110); Potassium 2.9 mmol/L (3.5-5.1); Sodium 133 mmol/L (136-145)
[2023-08-21 05:18] LABS: Free T4 (Free Thyroxine) 1.14 ng/dL (0.70-1.48); Thyroid Stimulating Hormone 5.9177 uIU/mL (0.35-4.94)
[2023-08-21] MEDS: Potassium Chloride 20 MEQ TAB PO SCH (09:26)
[2023-08-21 12:51] LABS: Phosphorus 3.9 mg/dL (2.3-4.7)
[2023-08-21] MEDS: Carvedilol 3.125 MG TAB PO SCH (16:17)
[2023-08-21] MEDS: NIFEdipine XL 30 MG ER.TAB PO SCH (20:05)
[2023-08-22] MEDS: Furosemide 40 MG TAB PO SCH (06:52)
[2023-08-22 14:01] LABS: #Monocytes 0.9 thou/uL (0.11-0.59); #Neutrophils 3.3 thou/uL (1.40-6.50); %Basophils 0.3 % (0.0-1.0); %Eosinophils 0.3 % (0.0-10.0); %Lymphocytes 27.3 % (21.0-51.0); %Monocytes 15.8 % (0.0-10.0); Hemoglobin 11.6 g/dL (14.0-18.0); Mean Corpuscular HGB CONC 34.1 g/dL (32.0-36.0); Mean Corpuscular Hemoglobin 31.5 pg (27.0-31.0); Mean Corpuscular Volume 92.4 fl (78.0-98.0); Mean Platelet Volume 8.4 fL (7.4-10.4); Platelet Count 279 10x3/uL (130-400); RBC Distribution Width 12.1 % (11.5-14.5); Red Blood Cell (RBC) Count 3.68 mill/uL (4.70-6.10); White Blood Cell (WBC) Count 5.9 10x3/uL (4.8-10.8)
[2023-08-22 14:24] LABS: Anion Gap 17 mmol/L (10-20); BUN (Urea Nitrogen) 31 mg/dL (8.4-25.7); Calc. Creatinine Clearance 25 mL/min (70-130); Calcium 9.6 mg/dL (7.8-10.44); Carbon Dioxide 30 mmol/L (23-31); Chloride 90 mmol/L (98-107); Estimated GFR 23; Glucose 152 mg/dL (83-110); Magnesium 1.5 mg/dL (1.6-2.6); Potassium 4.3 mmol/L (3.5-5.1); Sodium 133 mmol/L (136-145)
[2023-08-22] MEDS: Albumin 25% 25 GM (100 mL) BOT IVPB SCH (15:26)
[2023-08-22] MEDS: Magnesium Sulfate 4 GM in Sodium Chloride 0.9% 250 ML 250 ML IVPB SCH (15:33)
[2023-08-22] MEDS: Magnesium Sulfate In Water 4 GM in Premix 1 BAG IVPB SCH (16:29)
[2023-08-22] MEDS: Apixaban 5 MG TAB PO SCH (20:42)
[2023-08-23 05:15] LABS: Anion Gap 16 mmol/L (10-20); BUN (Urea Nitrogen) 34 mg/dL (8.4-25.7); Calc. Creatinine Clearance 24 mL/min (70-130); Calcium 9.7 mg/dL (7.8-10.44); Carbon Dioxide 31 mmol/L (23-31); Chloride 89 mmol/L (98-107); Estimated GFR 23; Glucose 131 mg/dL (83-110); Magnesium 2.5 mg/dL (1.6-2.6); Potassium 3.5 mmol/L (3.5-5.1); Sodium 132 mmol/L (136-145)
[2023-08-23 11:48] VITALS: BP 148/69; TEMP 98
== END 2023-08-23 12:27 | disposition home or self-care (01) | DRG 291 ==
LOC: ERS 10:27 → ERHOLD 13:50 → 2NO 21:56
PROVIDERS: ADMIT Family Medicine; ATTEND Family Medicine
PROC: 30233J1 Transfusion of Nonautologous Serum Albumin into Peripheral Vein, Percutaneous Approach (ICD-10-PCS; principal; 2023-08-22)
DX: I13.0 Hypertensive heart and chronic kidney disease with heart failure and stage 1 through stage 4 chronic kidney disease, or unspecified chronic kidney disease (principal); I50.33 Acute on chronic diastolic (congestive) heart failure; E87.1 Hypo-osmolality and hyponatremia; N17.9 Acute kidney failure, unspecified; E78.5 Hyperlipidemia, unspecified; E11.22 Type 2 diabetes mellitus with diabetic chronic kidney disease; E03.9 Hypothyroidism, unspecified; D64.9 Anemia, unspecified; N18.32 Chronic kidney disease, stage 3b; I48.0 Paroxysmal atrial fibrillation; E83.42 Hypomagnesemia; Z79.899 Other long term (current) drug therapy; Z98.890 Other specified postprocedural states; Z82.49 Family history of ischemic heart disease and other diseases of the circulatory system; Z87.891 Personal history of nicotine dependence
CPT/HCPCS: 36415; 36416; 71046; 80048; 80053; 83735; 83880; 83970; 84100; 84439; 84443; 84481; 84484; 85025; 93005; 93010; 93306; 96374; J1644; J1815; J1940; J3475; P9047

== ENCOUNTER 2023-08-31 11:24 | Inpatient (IN) | payer MEDICARE ==
[2023-08-31 11:54] LABS: #Eosinphils 0.1 thou/uL (0.0-0.7); #Monocytes 0.5 thou/uL (0.11-0.59); #Neutrophils 6.6 thou/uL (1.40-6.50); %Basophils 0.1 % (0.0-1.0); %Eosinophils 0.9 % (0.0-10.0); %Monocytes 5.9 % (0.0-10.0); %Neutrophils 75.6 % (42.0-75.0); Hematocrit 33.4 % (42.0-52.0); Hemoglobin 12.2 g/dL (14.0-18.0); Mean Corpuscular HGB CONC 36.5 g/dL (32.0-36.0); Mean Corpuscular Hemoglobin 31.4 pg (27.0-31.0); Mean Corpuscular Volume 85.9 fl (78.0-98.0); Mean Platelet Volume 8.8 fL (7.4-10.4); Platelet Count 277 10x3/uL (130-400); RBC Distribution Width 11.4 % (11.5-14.5); Red Blood Cell (RBC) Count 3.89 mill/uL (4.70-6.10); White Blood Cell (WBC) Count 8.8 10x3/uL (4.8-10.8)
[2023-08-31 12:20] LABS: ALT (SGPT) 23 U/L (8-55); AST (SGOT) 25 U/L (5-34); Albumin 4.6 g/dL (3.4-4.8); Alkaline Phosphatase 69 U/L (40-110); Anion Gap 15 mmol/L (10-20); BUN (Urea Nitrogen) 43 mg/dL (8.4-25.7); Bilirubin, Total 1.1 mg/dL (0.2-1.2); Calc. Creatinine Clearance 0 mL/min (70-130); Calcium 9.6 mg/dL (7.8-10.44); Carbon Dioxide 28 mmol/L (23-31); Chloride 84 mmol/L (98-107); Estimated GFR 28; Globulin 3.4 g/dL (2.4-3.5); Glucose 196 mg/dL (83-110); Magnesium 1.7 mg/dL (1.6-2.6); Sodium 124 mmol/L (136-145)
[2023-08-31 12:23] LABS: Troponin I 0.015 ng/mL (< 0.028)
[2023-08-31] MEDS ORDERED: Potassium Bicarbonate/Cit Ac 20 MEQ TAB ONE (13:10)
[2023-08-31] MEDS ORDERED: Furosemide 40 MG (4 mL) VIAL ONE ×2 (13:10→20:13)
[2023-08-31] MEDS ORDERED: Magnesium 2 GM/50 ML BAG (IN WATER) ONE (13:11)
[2023-08-31] MEDS ORDERED: Calcium Carbonate 500 MG ChewTAB PO PRN (13:36)
[2023-08-31 15:43] VITALS: BMI 24.5
[2023-08-31] MEDS: Albumin 25% 25 GM (100 mL) BOT IVPB SCH (20:20)
[2023-08-31] MEDS: Melatonin 3 MG TAB PO PRN (20:21)
[2023-08-31] MEDS: Benzocaine/Menthol 1 LOZ LOZ PO PRN (20:21)
[2023-08-31] MEDS: Furosemide 40 MG (4 mL) VIAL SLOW IVP SCH (20:21)
[2023-08-31] MEDS: NIFEdipine XL 30 MG ER.TAB PO SCH (22:27)
[2023-08-31] MEDS: hydrALAZINE 25 MG TAB PO SCH (22:28)
[2023-08-31] MEDS: Apixaban 5 MG TAB PO SCH (22:29)
[2023-08-31] MEDS: Carvedilol 25 MG TAB PO SCH (22:29)
[2023-08-31] MEDS: Acetaminophen 325 MG TAB PO PRN (22:45)
[2023-08-31] MEDS: Benzonatate 100 MG CAP PO PRN (22:45)
[2023-08-31] MEDS: Ondansetron PF 4 MG/2 ML Vial IVP PRN (22:45)
[2023-09-01] MEDS: Levothyroxine Sodium 25 MCG TAB PO SCH (05:22)
[2023-09-01] MEDS: Furosemide 40 MG (4 mL) VIAL SLOW IVP SCH (05:23)
[2023-09-01 06:40] LABS: #Monocytes 0.5 thou/uL (0.11-0.59); #Neutrophils 3.1 thou/uL (1.40-6.50); %Basophils 0.2 % (0.0-1.0); %Eosinophils 0.6 % (0.0-10.0); %Lymphocytes 26.3 % (21.0-51.0); %Monocytes 10.6 % (0.0-10.0); %Neutrophils 61.9 % (42.0-75.0); Hematocrit 27.1 % (42.0-52.0); Hemoglobin 9.7 g/dL (14.0-18.0); Mean Corpuscular HGB CONC 35.8 g/dL (32.0-36.0); Mean Corpuscular Hemoglobin 31.5 pg (27.0-31.0); Platelet Count 225 10x3/uL (130-400); RBC Distribution Width 11.5 % (11.5-14.5); Red Blood Cell (RBC) Count 3.08 mill/uL (4.70-6.10)
[2023-09-01 07:10] LABS: ALT (SGPT) 16 U/L (8-55); AST (SGOT) 17 U/L (5-34); Albumin 4.4 g/dL (3.4-4.8); Alkaline Phosphatase 50 U/L (40-110); Anion Gap 12 mmol/L (10-20); BUN (Urea Nitrogen) 40 mg/dL (8.4-25.7); Bilirubin, Total 0.8 mg/dL (0.2-1.2); Calc. Creatinine Clearance 32 mL/min (70-130); Calcium 9.2 mg/dL (7.8-10.44); Carbon Dioxide 35 mmol/L (23-31); Chloride 87 mmol/L (98-107); Estimated GFR 30; Globulin 2.5 g/dL (2.4-3.5); Glucose 154 mg/dL (83-110); Magnesium 1.8 mg/dL (1.6-2.6); Potassium 2.9 mmol/L (3.5-5.1); Protein, Total 6.9 g/dL (5.8-8.1); Sodium 131 mmol/L (136-145)
[2023-09-01] MEDS: Aspirin 81 mg Enteric Coated Tablet PO SCH (09:55)
[2023-09-01] MEDS: Atorvastatin Calcium 20 MG TAB PO SCH (09:56)
[2023-09-01] MEDS: Empagliflozin 10 MG TAB PO SCH (09:56)
[2023-09-01] MEDS: Potassium Chloride 20 MEQ in Premix 1 BAG IVPB SCH (09:57)
[2023-09-01] MEDS: Potassium Chloride 20 MEQ TAB PO SCH ×2 (10:00→18:38)
[2023-09-01 15:48] LABS: Potassium 3.4 mmol/L (3.5-5.1)
[2023-09-01 19:15] LABS: Magnesium 2.1 mg/dL (1.6-2.6)
[2023-09-02 07:00] LABS: Anion Gap 12 mmol/L (10-20); BUN (Urea Nitrogen) 36 mg/dL (8.4-25.7); Calc. Creatinine Clearance 29 mL/min (70-130); Calcium 9.7 mg/dL (7.8-10.44); Carbon Dioxide 33 mmol/L (23-31); Chloride 93 mmol/L (98-107); Estimated GFR 29; Glucose 142 mg/dL (83-110); Potassium 3.4 mmol/L (3.5-5.1); Sodium 135 mmol/L (136-145)
[2023-09-02] MEDS: NIFEdipine XL 60 MG ER.TAB PO SCH (08:42)
[2023-09-02] MEDS: Furosemide 40 MG TAB PO SCH (08:43)
[2023-09-02 08:47] VITALS: BP 136/63; TEMP 98.4
[2023-09-02] MEDS ORDERED: NIFEdipine XL 30 MG ER.TAB PO SCH (09:00)
[2023-09-04] MEDS ORDERED: FLU VACC QS2023(65UP)/MF59C/PF 60 MCG/0.5 ML SYRINGE IM ONE (09:00)
== END 2023-09-02 09:40 | disposition home or self-care (01) | DRG 291 ==
LOC: ERS 11:24 → ERHOLD 13:35 → 2SE 22:50 → OBSVTOIN 09-01 13:58
PROVIDERS: ADMIT Internal Medicine; ATTEND Family Medicine
PROC: 30233J1 Transfusion of Nonautologous Serum Albumin into Peripheral Vein, Percutaneous Approach (ICD-10-PCS; principal; 2023-08-31)
DX: I13.0 Hypertensive heart and chronic kidney disease with heart failure and stage 1 through stage 4 chronic kidney disease, or unspecified chronic kidney disease (principal); I50.33 Acute on chronic diastolic (congestive) heart failure; E87.3 Alkalosis; E87.1 Hypo-osmolality and hyponatremia; N17.9 Acute kidney failure, unspecified; N18.4 Chronic kidney disease, stage 4 (severe); E87.6 Hypokalemia; I48.0 Paroxysmal atrial fibrillation; E78.5 Hyperlipidemia, unspecified; E03.9 Hypothyroidism, unspecified; D64.9 Anemia, unspecified; E11.22 Type 2 diabetes mellitus with diabetic chronic kidney disease; E78.00 Pure hypercholesterolemia, unspecified; Z87.891 Personal history of nicotine dependence; Z79.82 Long term (current) use of aspirin; Z79.899 Other long term (current) drug therapy
CPT/HCPCS: 36415; 71045; 80048; 80053; 83735; 83880; 84443; 84484; 85025; 93005; 93798; 96374; 96375; 96376; G0378; J1940; J2405; J3475; J3480; P9047